=== PATIENT | female | born 1975 | race Caucasian/White ===

== ENCOUNTER 2016-08-06 13:38 | Inpatient (IN) | payer OTHER ==
[~2016-08-06] VITALS: Ht 162.6 cm; Wt 83.8 kg
[2016-08-06] MEDS ORDERED: LACTATED RINGER'S 1,000 ML IV SCH (15:06)
[2016-08-06] MEDS ORDERED: GLUCAGON 1 MG INJ IM PRN (15:30)
[2016-08-06] MEDS ORDERED: DEXTROSE 50% 50 ML SYRINGE IV PRN ×2 (15:30)
[2016-08-06] MEDS ORDERED: ACETAMINOPHEN 325 MG TAB PO PRN (15:30)
[2016-08-06] MEDS ORDERED: GLUCOSE GEL 15 GRAM TUBE BUCCAL PRN (15:30)
[2016-08-06] MEDS ORDERED: GLUCOSE GEL 15 GRAM TUBE PO PRN ×2 (15:30)
[2016-08-06 15:44] VITALS: BMI 37.3
[2016-08-06] MEDS: LACTATED RINGER'S 1,000 ML IV SCH ×2 (15:46→23:15)
[2016-08-06] MEDS: BETAMET NA PHOS/AC(6 MG/ML) 5ML INJ IM SCH (15:46)
[2016-08-06 16:21] LABS: ADD UMIC NO; URINE BILIRUBIN (Dip) NEGATIVE (NEGATIVE); URINE BLOOD (Dip) NEGATIVE (NEGATIVE); URINE COLOR LT. YELLOW (YELLOW); URINE GLUCOSE (Dip) NEGATIVE (NEGATIVE); URINE KETONES (Dip) NEGATIVE (NEGATIVE); URINE LEUKOCYTE ESTERASE (Dip) NEGATIVE (NEGATIVE); URINE NITRITE (Dip) NEGATIVE (NEGATIVE); URINE TOTAL PROTEIN (Dip) NEGATIVE (NEGATIVE); URINE UROBILINOGEN (Dip) 0.2 E.U./dL (0.1-1.0)
[2016-08-06 16:29] LABS: ALBUMIN 3.8 g/dl (3.3-4.9); INR 1.01; PARTIAL THROMBOPLASTIN TIME 29.7 Sec (25.0-35.0); PROTIME 13.3 Sec (12.2-14.2)
[2016-08-06 16:30] LABS: POTASSIUM 3.6 mmol/L (3.5-5.1)
[2016-08-06 16:32] LABS: ALBUMIN/GLOBULIN RATIO 0.92; BILIRUBIN,INDIRECT 0.3 mg/dl (0-1.1); BILIRUBIN,TOTAL 0.3 mg/dl (0.2-1.3); CREATININE 0.52 mg/dl (0.44-1.00); TOTAL PROTEIN 7.9 g/dl (6.1-8.1)
[2016-08-06 16:33] LABS: CALCIUM 9.8 mg/dl (8.4-10.2)
[2016-08-06 16:51] LABS: BASOPHIL # 0.1 10^3/ul (0.0-0.1); BASOPHILS % 0.4 % (0.0-2.0); EOSINOPHILS # 0.1 10^3/ul (0.0-0.5); EOSINOPHILS % 0.9 % (0.0-7.0); HEMATOCRIT 36.9 % (37.0-47.0); HEMOGLOBIN 12.3 g/dl (12.0-16.0); LYMPHOCYTES # 2.2 10^3/ul (0.8-2.9); LYMPHOCYTES % 15.4 % (15.0-51.0); MEAN CORPUSCULAR HEMOGLOBIN 28.5 pg (29.0-33.0); MEAN CORPUSCULAR HGB CONC 33.3 g/dl (32.0-37.0); MEAN CORPUSCULAR VOLUME 85.8 fl (82.0-101.0); MEAN PLATELET VOLUME 9.9 fl (7.4-10.4); MONOCYTE # 0.7 10^3/ul (0.3-0.9); MONOCYTES % 4.9 % (0.0-11.0); NEUTROPHIL # 10.9 10^3/ul (1.6-7.5); NEUTROPHILS % 78.4 % (39.0-77.0); PLATELET COUNT 493 10^3/UL (140-440); RED CELL DISTRIBUTION WIDTH 14.2 % (11.5-14.5); UNCORRECTED WBC 13.9 10^3/ul (4.8-10.8); WHITE BLOOD COUNT 13.9 10^3/ul (4.8-10.8)
[2016-08-06 16:58] LABS: CONDITION 1
[2016-08-06] MEDS: INSULIN ASPART [NOVOLOG] 3 ML PEN SC SCH (17:35)
[2016-08-06] MEDS ORDERED: INSULIN ASPART [NOVOLOG] 3 ML PEN SC SCH (18:05)
[2016-08-06] MEDS: metFORMIN (XR) 500 MG TAB PO SCH (20:41)
[2016-08-06] MEDS: LABETALOL 200 MG TAB PO SCH (20:41)
[2016-08-06] MEDS: NPH, HUMAN INSULIN ISOPHANE 3ML VIAL SC SCH (21:59)
[2016-08-07] MEDS: ACCUCHECK XX SCH ×3 (02:55→20:05)
[2016-08-07] MEDS: NPH, HUMAN INSULIN ISOPHANE 3ML VIAL SC SCH ×2 (08:50→21:33)
[2016-08-07] MEDS: INSULIN ASPART [NOVOLOG] 3 ML PEN SC SCH ×5 (08:54→20:19)
[2016-08-07] MEDS: LABETALOL 200 MG TAB PO SCH ×2 (09:00→21:31)
[2016-08-07] MEDS: MULTIVIT/MIN/FOLATE/IRON/PREN TAB PO SCH (09:07)
[2016-08-07] MEDS: FERROUS SULFATE (EC) 325 MG TAB PO SCH (09:07)
[2016-08-07] MEDS: DOCUSATE SODIUM 100 MG CAP PO SCH (09:08)
[2016-08-07] MEDS: metFORMIN (XR) 500 MG TAB PO SCH ×2 (09:11→21:30)
[2016-08-07] MEDS: LACTATED RINGER'S 1,000 ML IV SCH (10:25)
[2016-08-07] MEDS ORDERED: INSULIN ASPART [NOVOLOG] 3 ML PEN SC SCH ×2 (11:30→13:00)
[2016-08-07] MEDS: BETAMET NA PHOS/AC(6 MG/ML) 5ML INJ IM SCH (15:56)
--- NOTE | 2016-08-07 18:16 | HP ---
Date/Time of Note Date/Time of Note DATE: 08/07/16 TIME: 18:12 OB - History Hx of Present Chief Complaint: Elevated BP Estimated Due Date: Oct 24, 2016 : 4 Para: 1 Spontaneous : 2 Therapeutic : 0 Care: Good Care Obstetrical Complications: Growth Restriction Medical Complications: Other (DM and chronic hypertension) Past Family/Social History * Past Medical, Surgical, Family and Obstetric Histories reviewed from chart. OB Admission Exam Physical Exam HEENT: WNL Heart: Rhythm Normal Lungs: Clear Abdomen: WNL Last 72 hourBlood Glucose Bedside Glucose - 72 Hours Test 08/06/16 20:13 08/07/16 11:05 08/07/16 15:02 Bedside Glucose 222mg/dL (70-220) H 200mg/dL (70-220) 206mg/dL (70-220) Last 72 hours Lab Results CBC & BMP 08/06/16 15:20 Liver Function Test 08/06/16 15:20 Alanine Aminotransferase (ALT/SGPT) 25 Albumin 3.8 Alkaline Phosphatase 128 H Aspartate Amino Transf (AST/SGOT) 26 Direct Bilirubin 0.00 Total Protein 7.9 OB Assessment/Plan Reason for admission: other (R/O superimposed preeclampsia) Plan: Other (Admit, PIH panel, 24 hour urine collection, course of betamethasone, MFM consult) DANUTA BUTTERFIELD MD Aug 07, 2016 18:16
[2016-08-07 19:56] LABS: SCRET 0.52 mg/dl (0.44-1.00)
[2016-08-08] MEDS: ACCUCHECK XX SCH ×5 (02:08→20:33)
[2016-08-08] MEDS: INSULIN ASPART [NOVOLOG] 3 ML PEN SC SCH ×5 (09:21→20:30)
[2016-08-08] MEDS: NPH, HUMAN INSULIN ISOPHANE 3ML VIAL SC SCH ×2 (09:23→20:56)
[2016-08-08] MEDS: MULTIVIT/MIN/FOLATE/IRON/PREN TAB PO SCH (09:25)
[2016-08-08] MEDS: DOCUSATE SODIUM 100 MG CAP PO SCH (09:26)
[2016-08-08] MEDS: metFORMIN (XR) 500 MG TAB PO SCH ×2 (09:26→20:38)
[2016-08-08] MEDS: LABETALOL 200 MG TAB PO SCH ×2 (09:27→20:38)
[2016-08-08] MEDS: FERROUS SULFATE (EC) 325 MG TAB PO SCH (09:27)
--- NOTE | 2016-08-08 12:24 | QN ---
Documentation Comment 28+wks GA with PIH ,On labetalol,No Headache No blurry vision No epigastric pain NST reassuring for GA Ages No CTXs BP 140/90s --->F/u 24 hr urine for Protein ---->Management as perinatalogy --->Neonatalogy consult MAHI PERDOMO M.D. Aug 08, 2016 12:24
[2016-08-09] MEDS: ACCUCHECK XX SCH ×5 (02:18→20:30)
[2016-08-09] MEDS: INSULIN ASPART [NOVOLOG] 3 ML PEN SC SCH ×5 (08:40→20:30)
[2016-08-09] MEDS: NPH, HUMAN INSULIN ISOPHANE 3ML VIAL SC SCH ×2 (08:40→21:34)
[2016-08-09] MEDS: FERROUS SULFATE (EC) 325 MG TAB PO SCH (08:41)
[2016-08-09] MEDS: DOCUSATE SODIUM 100 MG CAP PO SCH (08:41)
[2016-08-09] MEDS: LABETALOL 200 MG TAB PO SCH ×2 (08:41→21:29)
[2016-08-09] MEDS: metFORMIN (XR) 500 MG TAB PO SCH ×2 (08:41→21:27)
[2016-08-09] MEDS: MULTIVIT/MIN/FOLATE/IRON/PREN TAB PO SCH (08:41)
[2016-08-09] MEDS ORDERED: LACTATED RINGER'S 1,000 ML IV SCH (09:30)
[2016-08-09 10:33] LABS: INR 0.96; PROTIME 12.8 Sec (12.2-14.2)
[2016-08-09 10:34] LABS: PARTIAL THROMBOPLASTIN TIME 26.9 Sec (25.0-35.0)
[2016-08-09 10:35] LABS: ALBUMIN 3.5 g/dl (3.3-4.9); POTASSIUM 3.5 mmol/L (3.5-5.1)
[2016-08-09 10:37] LABS: BILIRUBIN,INDIRECT 0.3 mg/dl (0-1.1); BILIRUBIN,TOTAL 0.3 mg/dl (0.2-1.3); CREATININE 0.57 mg/dl (0.44-1.00)
[2016-08-09 10:38] LABS: ALBUMIN/GLOBULIN RATIO 0.97; TOTAL PROTEIN 7.1 g/dl (6.1-8.1); URIC ACID 6.3 mg/dl (3.1-7.9)
[2016-08-09 10:39] LABS: CALCIUM 8.7 mg/dl (8.4-10.2)
--- NOTE | 2016-08-09 10:43 | RADRPT ---
PROCEDURE: US OB biophysical profile. CLINICAL INDICATION: decreased movements TECHNIQUE: Multiple sonographic images of the pelvis were obtained. The images were reviewed on a PACS workstation. COMPARISON: No prior studies are available for comparison. FINDINGS: There is a single viable intrauterine gestation. Cardiac activity is present with 166 beats per min [place]. There is a vertex presentation. The placenta is anterior. There is no evidence of placental abruption. There is a slightly increased amount of amniotic fluid with an SILKE = 21.7 cm. Biophysical profile: movement 2/2 tone 2/2. breathing 2/2 SILKE 2/2 Total 02/03 RPTAT: AA . IMPRESSION: Normal biophysical profile. Mild polyhydramnios. . .Zachariah Keyes MD, Date Time Electronically viewed and signed by .Zachariah Keyes MD, MD on 08/09/2016 10:42 .S/
--- NOTE | 2016-08-09 10:44 | RADRPT ---
PROCEDURE: US OB. CLINICAL INDICATION: iugr, nonreassuring tracing, gestational diabetes TECHNIQUE: Multiple sonographic images of the pelvis were obtained. The images were reviewed on a PACS workstation. COMPARISON: No prior studies are available for comparison. FINDINGS: There is a single viable intrauterine gestation. Cardiac activity is present with 163 beats per min [place]. There is a cephalic presentation. Measurements were made in order to determine age. The results are as follows: BPD =6.96 cm; 32-vdee-8-day HC =25.2 cm; 27 weeks 2 days AC =23.24 cm; 27 weeks 4 days FL =4.74 cm; 25 weeks 6 days. HC/AC: 1.08 Estimated gestational age of approximately 27 weeks 1 day. The estimated date of delivery is 11/07/2016. The EFW = 1010 g plus or minus 151.4 g . EFW %: Less than 3% The placenta is anterior and grade 2. There is no evidence for an abruption or placenta previa. There are no adnexal masses.. IMPRESSION: 1. Single viable intrauterine gestation of approximately 27 weeks 1 day. The estimated date of deli very is 11/07/2016 . 2. The EFW = 1010 g plus or minus 151.4 g which corresponds to a EFW % of less than 3%. Findings c an be seen symmetric IUGR Text .Mirtha Davila MD, MD Date Time Electronically viewed and signed by .Mirtha Davila MD, MD on 08/09/2016 10:44 .M/
[2016-08-09 10:57] LABS: BASOPHIL # 0.1 10^3/ul (0.0-0.1); BASOPHILS % 0.4 % (0.0-2.0); EOSINOPHILS # 0.1 10^3/ul (0.0-0.5); EOSINOPHILS % 0.7 % (0.0-7.0); HEMATOCRIT 35.2 % (37.0-47.0); HEMOGLOBIN 11.7 g/dl (12.0-16.0); LYMPHOCYTES # 3.2 10^3/ul (0.8-2.9); LYMPHOCYTES % 18.7 % (15.0-51.0); MEAN CORPUSCULAR HEMOGLOBIN 28.8 pg (29.0-33.0); MEAN CORPUSCULAR HGB CONC 33.2 g/dl (32.0-37.0); MEAN CORPUSCULAR VOLUME 86.9 fl (82.0-101.0); MEAN PLATELET VOLUME 9.6 fl (7.4-10.4); NEUTROPHIL # 12.8 10^3/ul (1.6-7.5); NEUTROPHILS % 74.2 % (39.0-77.0); PLATELET COUNT 439 10^3/UL (140-440); RED BLOOD COUNT 4.06 10^6/ul (4.20-5.40); RED CELL DISTRIBUTION WIDTH 14.3 % (11.5-14.5); UNCORRECTED WBC 17.2 10^3/ul (4.8-10.8); WHITE BLOOD COUNT 17.2 10^3/ul (4.8-10.8)
[2016-08-09 11:05] LABS: CONDITION 1
--- NOTE | 2016-08-09 16:29 | QN ---
Documentation Comment Patient has no complaint. Afebrile VSS Strip Decreased variability. BPP 02/03 Continue with present care. DANUTA BUTTERFIELD MD Aug 09, 2016 16:29
[2016-08-10] MEDS: ACCUCHECK XX SCH ×5 (02:00→20:57)
[2016-08-10] MEDS: NPH, HUMAN INSULIN ISOPHANE 3ML VIAL SC SCH ×2 (08:46→21:00)
[2016-08-10] MEDS: INSULIN ASPART [NOVOLOG] 3 ML PEN SC SCH ×4 (08:48→20:30)
[2016-08-10] MEDS: FERROUS SULFATE (EC) 325 MG TAB PO SCH (08:50)
[2016-08-10] MEDS: MULTIVIT/MIN/FOLATE/IRON/PREN TAB PO SCH (08:50)
[2016-08-10] MEDS: DOCUSATE SODIUM 100 MG CAP PO SCH (08:50)
[2016-08-10] MEDS: LABETALOL 200 MG TAB PO SCH ×2 (08:51→21:12)
[2016-08-10] MEDS: metFORMIN (XR) 500 MG TAB PO SCH ×2 (08:52→21:28)
--- NOTE | 2016-08-10 12:47 | RADRPT ---
PROCEDURE: OB ultrasound CLINICAL INDICATION: IUGR with induced hypertension and tachycardia TECHNIQUE: Multiple transverse and longitudinal OB images of the pelvis were obtained. The images were reviewed on a high-resolution PACS workstation. COMPARISON: 08/09/2016 FINDINGS: A single live intrauterine is seen. The presentation is vertex. The placenta is grade 1/2 and is anterior in location. No evidence of placenta abruption or previa is seen. The heart r ate is 171 beats per minute. The amniotic fluid index is 24.8 cm. movement 2 tone 2 breathing 2 Amniotic fluid 2 IMPRESSION: Biophysical profile of 02/03 with the amniotic fluid index of 24.8 cm which is the upper limits of nor mal and has increased compared to the prior examination. Continued follow-up is suggested. RPTAT: HPNM Physician Sussy Date Time Electronically viewed and signed by Physician Sussy on 08/10/2016 12:46 /
[2016-08-10] MEDS ORDERED: LABETALOL 200 MG TAB PO SCH (14:00)
[2016-08-10] MEDS: NIFEdipine (XL) 30 MG TAB PO SCH (14:37)
--- NOTE | 2016-08-10 16:53 | QN ---
Documentation Comment 28+wks GA with PIH ,On labetalol,No Headache No blurry vision No epigastric pain NST reassuring for GA [place] No CTXs BP 145/90s --->Close Observation ---->Management as perinatalogy MAHI PERDOMO M.D. Aug 10, 2016 16:53
[2016-08-11] MEDS: ACCUCHECK XX SCH ×6 (02:00→21:16)
[2016-08-11 06:00] LABS: BASOPHIL # 0.2 10^3/ul (0.0-0.1); BASOPHILS % 1.1 % (0.0-2.0); EOSINOPHILS # 0.2 10^3/ul (0.0-0.5); LYMPHOCYTES % 15.8 % (15.0-51.0); MEAN CORPUSCULAR HEMOGLOBIN 29.2 pg (29.0-33.0); MEAN CORPUSCULAR HGB CONC 34.2 g/dl (32.0-37.0); MEAN CORPUSCULAR VOLUME 85.3 fl (82.0-101.0); MEAN PLATELET VOLUME 9.5 fl (7.4-10.4); MONOCYTES % 5.2 % (0.0-11.0); NEUTROPHIL # 14.5 10^3/ul (1.6-7.5); NEUTROPHILS % 76.9 % (39.0-77.0); PLATELET COUNT 473 10^3/UL (140-440); RED BLOOD COUNT 4.81 10^6/ul (4.20-5.40); RED CELL DISTRIBUTION WIDTH 14.2 % (11.5-14.5); UNCORRECTED WBC 18.9 10^3/ul (4.8-10.8); WHITE BLOOD COUNT 18.9 10^3/ul (4.8-10.8)
[2016-08-11 06:14] LABS: CONDITION 1
[2016-08-11 06:32] LABS: ALBUMIN 3.4 g/dl (3.3-4.9); POTASSIUM 3.6 mmol/L (3.5-5.1)
[2016-08-11 06:34] LABS: CREATININE 0.66 mg/dl (0.44-1.00)
[2016-08-11 06:35] LABS: ALBUMIN/GLOBULIN RATIO 0.91; BILIRUBIN,INDIRECT 0.6 mg/dl (0-1.1); BILIRUBIN,TOTAL 0.6 mg/dl (0.2-1.3); TOTAL PROTEIN 7.1 g/dl (6.1-8.1); URIC ACID 6.9 mg/dl (3.1-7.9)
--- NOTE | 2016-08-11 07:06 | CONS ---
DATE OF ADMISSION: 08/06/2016 DATE OF CONSULTATION: REFERRING PHYSICIAN: Dr. Amin. I was asked to talk with this mother who is 29.1 weeks by gestational age with an IUGR fetus and with chronic hypertension, type 2 diabetes for 10 years on medications and advanced maternal age. Mother is a 41-year-old, 4, para 1, AB2 with 1 living child who is an 8-month-old. Mother states that the child was born at term and required phototherapy. She had 2 spontaneous abortions in 2007 and 2013. Mother's chart was reviewed, and mother's labs were essentially normal with a blood type of O positive, RPR nonreactive, HBsAg negative, HIV negative and no history of infections. GBS status is unknown. She has had chronic hypertension for 10 years and has been on Aldomet. She also had type 2 diabetes and has been on metformin. She had an ultrasound done on 08/06/2016 and was noted to have IUGR with an estimated weight over 800 grams. She was subsequently admitted to rule out PIH. 24-hour urine tests are pending. I reviewed the recent ultrasound which showed the estimated weight to be 1010 grams plus or minus 151 grams. Ultrasound gestational age is 27.1 weeks and the estimated gestational age is 29.1 weeks, with an EDC 10/24/2016. I talked with mother about the risk for respiratory distress and treatment including oxygen administration, CPAP, nasal IMV and intubation and surfactant administration and ventilatory therapy depending on the severity of the premature lung problem, as well as the size of the infant and ability to sustain breathing. I also discussed about the risk of apnea as well as treatment with caffeine and nasal cannula, CPAP or nasal IMV. We also discussed about the risk of infection due to extreme prematurity and infant to be on antibiotics and subsequently to be monitored continuously during hospitalization.I also discussed about the associated risk of mortality as well as morbidity. Discussed about the risk of hyperbilirubinemia, electrolyte imbalance and possibility of administration of blood products as well as blood transfusions. We discussed about feeding by OG or NG tube when the infant is clinically stable and also the benefits of breast milk. I encouraged mother to pump breast milk, and mother is ready to pump as soon as the infant is delivered. I also discussed about gastroesophageal reflux, necrotizing enterocolitis, possibility of a PDA and treatment. I discussed about the risk of intraventricular hemorrhage including a bleed and increased risk of cerebral palsy as well as neurodevelopmental delay based on grade of intraventricular hemorrhage as well as prematurity. I discussed about the survival of greater than 80% if the infant is 29 weeks by dates and 27 weeks by ultrasound. Discussed the mortality as well as morbidity and prolonged hospitalization of greater than 2 months. All mother's questions were answered. I also discussed about invasive lines including umbilical arterial catheterization, umbilical venous catheterization, risks as well as benefits. We also discussed about PICC line placement for IV nutrition. Mother received betamethasone on 08/06/2016 and 08/07/2016 and remains on insulin, labetalol and metformin at the present time. There were no additional questions. The discussion was concluded. Dictated By: AGUEDA CAMARGO/YOU Conf#: [id number] DID#: [id number] MTDD
[2016-08-11] MEDS: NPH, HUMAN INSULIN ISOPHANE 3ML VIAL SC SCH ×2 (07:38→21:21)
[2016-08-11] MEDS: DOCUSATE SODIUM 100 MG CAP PO SCH (08:57)
[2016-08-11] MEDS: LABETALOL 200 MG TAB PO SCH ×2 (08:57→21:18)
[2016-08-11] MEDS: MULTIVIT/MIN/FOLATE/IRON/PREN TAB PO SCH (08:57)
[2016-08-11] MEDS: FERROUS SULFATE (EC) 325 MG TAB PO SCH (08:57)
[2016-08-11] MEDS: INSULIN ASPART [NOVOLOG] 3 ML PEN SC SCH ×5 (09:04→20:30)
[2016-08-11] MEDS: metFORMIN (XR) 500 MG TAB PO SCH ×2 (09:09→21:17)
[2016-08-11] MEDS: NIFEdipine (XL) 30 MG TAB PO SCH (09:09)
--- NOTE | 2016-08-11 19:37 | QN ---
Documentation Comment No complaint Afebrile VSS strip Appropriate for GA BP improved with Procardia Continue with present care. DANUTA BUTTERFIELD MD Aug 11, 2016 19:37
[2016-08-11] MEDS: DIPHENHYDRAMINE 50 MG CAP PO SCH ×2 (21:47)
[2016-08-12] MEDS: ACCUCHECK XX SCH ×5 (02:00→20:19)
[2016-08-12] MEDS: NPH, HUMAN INSULIN ISOPHANE 3ML VIAL SC SCH ×2 (08:37→21:08)
[2016-08-12] MEDS: INSULIN ASPART [NOVOLOG] 3 ML PEN SC SCH ×5 (08:38→20:30)
[2016-08-12] MEDS: MULTIVIT/MIN/FOLATE/IRON/PREN TAB PO SCH (08:41)
[2016-08-12] MEDS: LABETALOL 200 MG TAB PO SCH ×2 (08:41→21:10)
[2016-08-12] MEDS: DOCUSATE SODIUM 100 MG CAP PO SCH (08:42)
[2016-08-12] MEDS: FERROUS SULFATE (EC) 325 MG TAB PO SCH (08:43)
[2016-08-12] MEDS: metFORMIN (XR) 500 MG TAB PO SCH ×2 (08:43→21:09)
[2016-08-12] MEDS: NIFEdipine (XL) 30 MG TAB PO SCH (08:44)
--- NOTE | 2016-08-12 18:56 | QN ---
Documentation Comment No complaint. Afebrile VSS Strip Appropriate for GA Continue with present care. DANUTA BUTTERFIELD MD Aug 12, 2016 18:56
[2016-08-12] MEDS: DIPHENHYDRAMINE 50 MG CAP PO SCH (21:10)
[2016-08-13] MEDS: ACCUCHECK XX SCH ×5 (02:00→19:30)
[2016-08-13] MEDS: INSULIN ASPART [NOVOLOG] 3 ML PEN SC SCH ×5 (08:33→20:30)
[2016-08-13] MEDS: NPH, HUMAN INSULIN ISOPHANE 3ML VIAL SC SCH ×2 (08:38→21:25)
[2016-08-13] MEDS: metFORMIN (XR) 500 MG TAB PO SCH ×2 (08:50→21:23)
[2016-08-13] MEDS: FERROUS SULFATE (EC) 325 MG TAB PO SCH (08:50)
[2016-08-13] MEDS: DOCUSATE SODIUM 100 MG CAP PO SCH (08:50)
[2016-08-13] MEDS: LABETALOL 200 MG TAB PO SCH ×2 (08:51→21:22)
[2016-08-13] MEDS: MULTIVIT/MIN/FOLATE/IRON/PREN TAB PO SCH (08:51)
[2016-08-13] MEDS: NIFEdipine (XL) 30 MG TAB PO SCH (08:51)
--- NOTE | 2016-08-13 15:01 | RADRPT ---
PROCEDURE: US biophysical profile. CLINICAL INDICATION: Decreased motion. TECHNIQUE: Multiple sonographic images of the uterus were obtained. The images were revi ewed on a PACS workstation. COMPARISON: 08/10/2016 FINDINGS: There is a single live intrauterine gestation. heart rate is 168 beats per minute. The position is transverse with head to maternal right. The placenta is anterior grade II with no abruption or previa. The SILKE is 16.2 cm. (Normal = 5-20 cm.) Breathing Movement: 2 Gross Body Movement: 2 Tone: 2 Qualitative Amniotic Fluid Volume: 2 TOTAL: 8 IMPRESSION: 1. The biophysical score is 8/8. RPTAT: QQ .Chris Garcia MD, MD Date Time Electronically viewed and signed by .Chris Garcia MD, on 08/13/2016 15:00 .R/
[2016-08-13] MEDS: DIPHENHYDRAMINE 50 MG CAP PO SCH (21:21)
--- NOTE | 2016-08-14 01:10 | QN ---
Documentation Comment No complaint Afebrile VSS Strip Appropriate for GA Continue with present care. DANUTA BUTTERFIELD MD Aug 14, 2016 01:10
[2016-08-14] MEDS: ACCUCHECK XX SCH ×6 (02:00→20:05)
[2016-08-14] MEDS: INSULIN ASPART [NOVOLOG] 3 ML PEN SC SCH ×5 (08:46→20:30)
[2016-08-14] MEDS: NPH, HUMAN INSULIN ISOPHANE 3ML VIAL SC SCH ×2 (08:48→21:12)
[2016-08-14] MEDS: DOCUSATE SODIUM 100 MG CAP PO SCH (08:50)
[2016-08-14] MEDS: FERROUS SULFATE (EC) 325 MG TAB PO SCH (08:50)
[2016-08-14] MEDS: metFORMIN (XR) 500 MG TAB PO SCH ×2 (08:51→21:13)
[2016-08-14] MEDS: NIFEdipine (XL) 30 MG TAB PO SCH (08:52)
[2016-08-14] MEDS: LABETALOL 200 MG TAB PO SCH ×2 (08:53→21:09)
[2016-08-14] MEDS: MULTIVIT/MIN/FOLATE/IRON/PREN TAB PO SCH (08:53)
--- NOTE | 2016-08-14 12:48 | RADRPT ---
PROCEDURE: Limited OB ultrasound CLINICAL INDICATION: Nonreactive strip TECHNIQUE: Sonographic evaluation to assess the cervical length was performed. Transabdominal uriah ging of the gravid uterus was performed. COMPARISON: No prior exam is available for comparison. FINDINGS: There is a single live intrauterine with cardiac activity, with a heart rate o f 150 bpm. position is cephalic. The placenta is anterior. The peak systolic velocity at th e level of the cord insertion is 29.4 cm/sec. The end-diastolic velocity is 8.0 cm/sec. The S/D ra doug is 3.7. IMPRESSION: 1. Single live intrauterine . 2. Peak systolic velocity of 29.4 cm/s, end-diastolic velocity of 8.0 cm/s, and S/D ratio of 3.7. RPTAT: HH .Verna Cha MD, MD Date Time Electronically viewed and signed by .Verna Cha MD, on 08/14/2016 12:48 .G/
[2016-08-14] MEDS: DIPHENHYDRAMINE 50 MG CAP PO SCH (22:13)
[2016-08-15] MEDS: ACCUCHECK XX SCH ×5 (02:00→20:06)
[2016-08-15] MEDS: INSULIN ASPART [NOVOLOG] 3 ML PEN SC SCH ×5 (09:08→20:40)
[2016-08-15] MEDS: NPH, HUMAN INSULIN ISOPHANE 3ML VIAL SC SCH ×2 (09:09→22:06)
[2016-08-15] MEDS: DOCUSATE SODIUM 100 MG CAP PO SCH (09:17)
[2016-08-15] MEDS: FERROUS SULFATE (EC) 325 MG TAB PO SCH (09:17)
[2016-08-15] MEDS: NIFEdipine (XL) 30 MG TAB PO SCH (09:18)
[2016-08-15] MEDS: MULTIVIT/MIN/FOLATE/IRON/PREN TAB PO SCH (09:18)
[2016-08-15] MEDS: metFORMIN (XR) 500 MG TAB PO SCH ×2 (09:18→21:16)
[2016-08-15] MEDS: LABETALOL 200 MG TAB PO SCH ×2 (09:20→21:15)
--- NOTE | 2016-08-15 18:03 | RADRPT ---
PROCEDURE: US OB biophysical profile. CLINICAL INDICATION: evaluation TECHNIQUE: Multiple sonographic images of the pelvis were obtained. The images were reviewed on a PACS workstation. COMPARISON: Obstetrical ultrasound from 08/13/2016 FINDINGS: There is a single viable intrauterine gestation. Cardiac activity is present with 161 beats per min [place]. There is a vertex presentation. The placenta is anterior. There is no evidence of placental abruption. There is a normal amount of amniotic fluid with an SILEK = 11.7 cm. Biophysical profile: movement 2/2 tone 2/2. breathing 2/2 SILKE 2/2 Total 02/03 RPTAT: AA . IMPRESSION: Normal biophysical profile. Normal SILKE. Physician Emory Date Time Electronically viewed and signed by Physician Emory on 08/15/2016 18:03 /
--- NOTE | 2016-08-15 19:53 | QN ---
Documentation Comment No complaint. Afebrile VSS Strip Appropriate for GA BPP 02/03 Continue with present care. DANUTA BUTTERFIELD MD Aug 15, 2016 19:53
[2016-08-15] MEDS: DIPHENHYDRAMINE 50 MG CAP PO SCH (22:07)
[2016-08-16] MEDS: ACCUCHECK XX SCH ×5 (00:26→20:05)
[2016-08-16 06:41] LABS: BASOPHIL # 0.1 10^3/ul (0.0-0.1); BASOPHILS % 0.5 % (0.0-2.0); EOSINOPHILS # 0.2 10^3/ul (0.0-0.5); EOSINOPHILS % 1.4 % (0.0-7.0); HEMATOCRIT 39.2 % (37.0-47.0); HEMOGLOBIN 13.1 g/dl (12.0-16.0); LYMPHOCYTES # 2.8 10^3/ul (0.8-2.9); LYMPHOCYTES % 16.9 % (15.0-51.0); MEAN CORPUSCULAR HEMOGLOBIN 28.9 pg (29.0-33.0); MEAN CORPUSCULAR HGB CONC 33.4 g/dl (32.0-37.0); MEAN CORPUSCULAR VOLUME 86.6 fl (82.0-101.0); MEAN PLATELET VOLUME 9.6 fl (7.4-10.4); MONOCYTE # 0.9 10^3/ul (0.3-0.9); MONOCYTES % 5.4 % (0.0-11.0); NEUTROPHIL # 12.3 10^3/ul (1.6-7.5); NEUTROPHILS % 75.8 % (39.0-77.0); PLATELET COUNT 422 10^3/UL (140-440); RED BLOOD COUNT 4.52 10^6/ul (4.20-5.40); RED CELL DISTRIBUTION WIDTH 14.5 % (11.5-14.5); UNCORRECTED WBC 16.3 10^3/ul (4.8-10.8); WHITE BLOOD COUNT 16.3 10^3/ul (4.8-10.8)
[2016-08-16 06:47] LABS: CONDITION 1; LH ANALYZER COMMENTS 1
[2016-08-16 06:54] LABS: ALBUMIN 3.4 g/dl (3.3-4.9)
[2016-08-16 06:55] LABS: POTASSIUM 3.5 mmol/L (3.5-5.1)
[2016-08-16 06:57] LABS: ALBUMIN/GLOBULIN RATIO 0.94; BILIRUBIN,INDIRECT 0.3 mg/dl (0-1.1); BILIRUBIN,TOTAL 0.3 mg/dl (0.2-1.3); CREATININE 0.54 mg/dl (0.44-1.00)
[2016-08-16 06:58] LABS: CALCIUM 8.8 mg/dl (8.4-10.2); URIC ACID 6.6 mg/dl (3.1-7.9)
[2016-08-16] MEDS: MULTIVIT/MIN/FOLATE/IRON/PREN TAB PO SCH (08:48)
[2016-08-16] MEDS: FERROUS SULFATE (EC) 325 MG TAB PO SCH (08:48)
[2016-08-16] MEDS: DOCUSATE SODIUM 100 MG CAP PO SCH (08:49)
[2016-08-16] MEDS: NIFEdipine (XL) 30 MG TAB PO SCH (08:49)
[2016-08-16] MEDS: LABETALOL 200 MG TAB PO SCH ×2 (08:49→21:11)
[2016-08-16] MEDS: INSULIN ASPART [NOVOLOG] 3 ML PEN SC SCH ×5 (08:50→20:05)
[2016-08-16] MEDS: NPH, HUMAN INSULIN ISOPHANE 3ML VIAL SC SCH ×2 (08:53→21:13)
[2016-08-16] MEDS: metFORMIN (XR) 500 MG TAB PO SCH ×2 (09:48→21:10)
--- NOTE | 2016-08-16 15:58 | QN ---
Documentation Comment No complaint Afebrile VSS Strip Appropriate for GA AST, ALT and plt WNL Continue with present care. DANUTA BUTTERFIELD MD Aug 16, 2016 15:58
[2016-08-16] MEDS: DIPHENHYDRAMINE 50 MG CAP PO SCH (21:10)
[2016-08-17] MEDS: ACCUCHECK XX SCH ×5 (02:00→20:05)
[2016-08-17] MEDS: NPH, HUMAN INSULIN ISOPHANE 3ML VIAL SC SCH ×2 (08:50→21:53)
[2016-08-17] MEDS: INSULIN ASPART [NOVOLOG] 3 ML PEN SC SCH ×5 (08:52→20:30)
[2016-08-17] MEDS: FERROUS SULFATE (EC) 325 MG TAB PO SCH (08:54)
[2016-08-17] MEDS: DOCUSATE SODIUM 100 MG CAP PO SCH (08:54)
[2016-08-17] MEDS: LABETALOL 200 MG TAB PO SCH ×2 (08:55→21:13)
[2016-08-17] MEDS: MULTIVIT/MIN/FOLATE/IRON/PREN TAB PO SCH (08:57)
[2016-08-17] MEDS: NIFEdipine (XL) 30 MG TAB PO SCH (09:05)
[2016-08-17] MEDS: metFORMIN (XR) 500 MG TAB PO SCH ×2 (09:06→21:13)
--- NOTE | 2016-08-17 15:29 | QN ---
Documentation Comment No complaint Afebrile VSS Strip Appropriate for GA Continue with present care. DANUTA BUTTERFIELD MD Aug 17, 2016 15:29
[2016-08-17] MEDS: DIPHENHYDRAMINE 50 MG CAP PO SCH (21:13)
[2016-08-18] MEDS: ACCUCHECK XX SCH ×5 (02:00→20:05)
[2016-08-18] MEDS: NPH, HUMAN INSULIN ISOPHANE 3ML VIAL SC SCH ×2 (07:30→21:46)
[2016-08-18] MEDS: MULTIVIT/MIN/FOLATE/IRON/PREN TAB PO SCH (09:00)
[2016-08-18] MEDS: FERROUS SULFATE (EC) 325 MG TAB PO SCH (09:00)
[2016-08-18] MEDS: DOCUSATE SODIUM 100 MG CAP PO SCH (09:00)
[2016-08-18] MEDS: NIFEdipine (XL) 30 MG TAB PO SCH (09:01)
[2016-08-18] MEDS: LABETALOL 200 MG TAB PO SCH ×2 (09:01→21:43)
[2016-08-18] MEDS: INSULIN ASPART [NOVOLOG] 3 ML PEN SC SCH ×5 (09:05→20:30)
[2016-08-18] MEDS: metFORMIN (XR) 500 MG TAB PO SCH ×2 (09:11→21:42)
--- NOTE | 2016-08-18 19:38 | QN ---
Documentation Comment No complaint Afebrile VSS Strip Appropriate for GA Continue with present care. DANUTA BUTTERFIELD MD Aug 18, 2016 19:38
[2016-08-18] MEDS: DIPHENHYDRAMINE 50 MG CAP PO SCH (21:42)
[2016-08-19] MEDS: ACCUCHECK XX SCH ×5 (02:00→19:35)
[2016-08-19] MEDS: INSULIN ASPART [NOVOLOG] 3 ML PEN SC SCH ×5 (09:19→20:30)
[2016-08-19] MEDS: NPH, HUMAN INSULIN ISOPHANE 3ML VIAL SC SCH ×2 (09:21→21:18)
[2016-08-19] MEDS: DOCUSATE SODIUM 100 MG CAP PO SCH (09:23)
[2016-08-19] MEDS: FERROUS SULFATE (EC) 325 MG TAB PO SCH (09:23)
[2016-08-19] MEDS: metFORMIN (XR) 500 MG TAB PO SCH ×2 (09:24→21:15)
[2016-08-19] MEDS: MULTIVIT/MIN/FOLATE/IRON/PREN TAB PO SCH (09:24)
[2016-08-19] MEDS: NIFEdipine (XL) 30 MG TAB PO SCH (09:26)
[2016-08-19] MEDS: LABETALOL 200 MG TAB PO SCH ×2 (09:26→21:16)
--- NOTE | 2016-08-19 14:05 | QN ---
Documentation Comment No complaint Afebrile VSS Strip Appropriate for GA Continue with present care. DANUTA BUTTERFIELD MD Aug 19, 2016 14:05
--- NOTE | 2016-08-19 15:47 | RADRPT ---
PROCEDURE: US OB biophysical profile. CLINICAL INDICATION: decreased movements, IUGR TECHNIQUE: Multiple sonographic images of the pelvis were obtained. The images were reviewed on a PACS workstation. COMPARISON: 08/15/2016 FINDINGS: There is a single viable intrauterine gestation. Cardiac activity is present with 171 beats per min [place]. There is a breech presentation. The placenta is anterior. There is no evidence of placental abruption. There is a slightly increased amount of amniotic fluid with an SILKE = 21.4 cm. Biophysical profile: movement 2/2 tone 2/2. breathing 2/2 SILKE 2/2 Total 02/03 RPTAT: AA . IMPRESSION: Normal biophysical profile. Slightly increased SILKE. . .Zachariah Keyes MD, Date Time Electronically viewed and signed by .Zachariah Keyes MD, on 08/19/2016 15:47 .S/
[2016-08-19 17:53] LABS: BASOPHIL # 0.1 10^3/ul (0.0-0.1); BASOPHILS % 0.5 % (0.0-2.0); EOSINOPHILS # 0.2 10^3/ul (0.0-0.5); EOSINOPHILS % 0.9 % (0.0-7.0); HEMATOCRIT 39.3 % (37.0-47.0); HEMOGLOBIN 13.3 g/dl (12.0-16.0); LYMPHOCYTES # 2.2 10^3/ul (0.8-2.9); LYMPHOCYTES % 12.7 % (15.0-51.0); MEAN CORPUSCULAR HGB CONC 33.7 g/dl (32.0-37.0); MEAN PLATELET VOLUME 10.1 fl (7.4-10.4); MONOCYTE # 0.8 10^3/ul (0.3-0.9); MONOCYTES % 4.8 % (0.0-11.0); NEUTROPHIL # 14.3 10^3/ul (1.6-7.5); NEUTROPHILS % 81.1 % (39.0-77.0); PLATELET COUNT 419 10^3/UL (140-440); RED BLOOD COUNT 4.57 10^6/ul (4.20-5.40); UNCORRECTED WBC 17.7 10^3/ul (4.8-10.8); WHITE BLOOD COUNT 17.7 10^3/ul (4.8-10.8)
[2016-08-19 18:02] LABS: CONDITION 1; LH ANALYZER COMMENTS 1
[2016-08-19 18:08] LABS: ALBUMIN 3.5 g/dl (3.3-4.9); POTASSIUM 3.7 mmol/L (3.5-5.1)
[2016-08-19 18:10] LABS: CREATININE 0.58 mg/dl (0.44-1.00)
[2016-08-19 18:11] LABS: ALBUMIN/GLOBULIN RATIO 1.02; BILIRUBIN,INDIRECT 0.3 mg/dl (0-1.1); BILIRUBIN,TOTAL 0.3 mg/dl (0.2-1.3); CALCIUM 9.3 mg/dl (8.4-10.2); TOTAL PROTEIN 6.9 g/dl (6.1-8.1)
[2016-08-19] MEDS: DIPHENHYDRAMINE 50 MG CAP PO SCH (21:13)
[2016-08-20] MEDS: ACCUCHECK XX SCH ×5 (02:00→20:33)
[2016-08-20] MEDS: INSULIN ASPART [NOVOLOG] 3 ML PEN SC SCH ×5 (08:36→20:30)
[2016-08-20] MEDS: NPH, HUMAN INSULIN ISOPHANE 3ML VIAL SC SCH ×2 (08:38→21:22)
[2016-08-20] MEDS: DOCUSATE SODIUM 100 MG CAP PO SCH (08:51)
[2016-08-20] MEDS: metFORMIN (XR) 500 MG TAB PO SCH ×2 (08:52→21:23)
[2016-08-20] MEDS: FERROUS SULFATE (EC) 325 MG TAB PO SCH (08:52)
[2016-08-20] MEDS: LABETALOL 200 MG TAB PO SCH ×2 (08:53→21:24)
[2016-08-20] MEDS: NIFEdipine (XL) 30 MG TAB PO SCH (08:53)
[2016-08-20] MEDS: MULTIVIT/MIN/FOLATE/IRON/PREN TAB PO SCH (08:53)
--- NOTE | 2016-08-20 20:10 | QN ---
Documentation Comment No complaint Afebrile VSS Strip Appropriate for GA Continue with present care. DANUTA BUTTERFIELD MD Aug 20, 2016 20:10
[2016-08-20] MEDS: DIPHENHYDRAMINE 50 MG CAP PO SCH (21:23)
[2016-08-21] MEDS: ACCUCHECK XX SCH ×5 (02:00→20:26)
[2016-08-21] MEDS: NPH, HUMAN INSULIN ISOPHANE 3ML VIAL SC SCH ×2 (09:08→21:43)
[2016-08-21] MEDS: INSULIN ASPART [NOVOLOG] 3 ML PEN SC SCH ×5 (09:09→20:27)
[2016-08-21] MEDS: DOCUSATE SODIUM 100 MG CAP PO SCH (09:18)
[2016-08-21] MEDS: NIFEdipine (XL) 30 MG TAB PO SCH (09:19)
[2016-08-21] MEDS: FERROUS SULFATE (EC) 325 MG TAB PO SCH (09:20)
[2016-08-21] MEDS: LABETALOL 200 MG TAB PO SCH ×2 (09:20→21:44)
[2016-08-21] MEDS: MULTIVIT/MIN/FOLATE/IRON/PREN TAB PO SCH (09:21)
[2016-08-21] MEDS: metFORMIN (XR) 500 MG TAB PO SCH ×2 (09:26→21:44)
[2016-08-21] MEDS: DIPHENHYDRAMINE 50 MG CAP PO SCH (21:44)
--- NOTE | 2016-08-21 23:17 | PN ---
Date/Time of Note Date/Time of Note DATE: 08/21/16 TIME: 23:15 OB Subjective Subjective Subjective Patient is on 200mg po BID to control htn; BP's 150's/90's; last BP 123/80 GDM, on insulin sliding, 10 U NPH qhs FHT continues to remain Cat II c/w plan as per BRADLEY Mock MD Aug 21, 2016 23:17
[2016-08-22] MEDS: ACCUCHECK XX SCH ×5 (02:00→19:41)
[2016-08-22] MEDS: LABETALOL 200 MG TAB PO SCH ×2 (08:52→21:23)
[2016-08-22] MEDS: NIFEdipine (XL) 30 MG TAB PO SCH (08:52)
[2016-08-22] MEDS: DOCUSATE SODIUM 100 MG CAP PO SCH (08:52)
[2016-08-22] MEDS: MULTIVIT/MIN/FOLATE/IRON/PREN TAB PO SCH (08:52)
[2016-08-22] MEDS: FERROUS SULFATE (EC) 325 MG TAB PO SCH (08:52)
[2016-08-22] MEDS: metFORMIN (XR) 500 MG TAB PO SCH ×2 (08:53→21:22)
[2016-08-22] MEDS: INSULIN ASPART [NOVOLOG] 3 ML PEN SC SCH ×5 (08:57→20:30)
[2016-08-22] MEDS: NPH, HUMAN INSULIN ISOPHANE 3ML VIAL SC SCH ×2 (08:58→21:35)
--- NOTE | 2016-08-22 18:05 | QN ---
Documentation Comment No complaint Afebrile VSS Strip Appropriate for GA Continue with present care DANUTA BUTTERFIELD MD Aug 22, 2016 18:03
--- NOTE | 2016-08-22 18:26 | RADRPT ---
PROCEDURE: US OB. CLINICAL INDICATION: High blood pressure TECHNIQUE: Multiple sonographic images of the pelvis were obtained. The images were reviewed on a PACS workstation. COMPARISON: 08/19/2069 FINDINGS: There is a single live intrauterine . cardiac activity is identified at a rate of 15 6 beats per minute. presentation is transverse to the maternal left. Placenta is anterior grade II. Biophysical profile score is as follows: Breathing 2 Movements 2 Tone 2 Fluid volume 2 Amniotic fluid index = 14.0 cm Total biophysical profile score = 8/8 IMPRESSION: Biophysical profile score = 8/8 RPTAT: HH .Nando Abrams MD, MD Date Time Electronically viewed and signed by .Nando Abrams MD, on 08/22/2016 18:26 .W/
[2016-08-22 18:48] LABS: ADD SCAN DIFF NO
[2016-08-22 18:51] LABS: BASOPHIL # 0.1 10^3/ul (0.0-0.1); BASOPHILS % 0.3 % (0.0-2.0); EOSINOPHILS # 0.1 10^3/ul (0.0-0.5); EOSINOPHILS % 0.9 % (0.0-7.0); HEMATOCRIT 39.2 % (37.0-47.0); HEMOGLOBIN 13.3 g/dl (12.0-16.0); LYMPHOCYTES # 2.7 10^3/ul (0.8-2.9); LYMPHOCYTES % 16.7 % (15.0-51.0); MEAN CORPUSCULAR HEMOGLOBIN 28.4 pg (29.0-33.0); MEAN CORPUSCULAR HGB CONC 33.9 g/dl (32.0-37.0); MEAN CORPUSCULAR VOLUME 83.8 fl (82.0-101.0); MEAN PLATELET VOLUME 11.3 fl (7.4-10.4); MONOCYTE # 0.7 10^3/ul (0.3-0.9); MONOCYTES % 4.4 % (0.0-11.0); NEUTROPHIL # 12.7 10^3/ul (1.6-7.5); NEUTROPHILS % 77.4 % (39.0-77.0); PLATELET COUNT 494 10^3/UL (140-415); RED BLOOD COUNT 4.68 10^6/ul (4.20-5.40); RED CELL DISTRIBUTION WIDTH 13.8 % (11.5-14.5); WHITE BLOOD COUNT 16.4 10^3/ul (4.8-10.8)
[2016-08-22 19:08] LABS: ALBUMIN 3.5 g/dl (3.3-4.9)
[2016-08-22 19:09] LABS: POTASSIUM 3.7 mmol/L (3.5-5.1)
[2016-08-22 19:11] LABS: ALBUMIN/GLOBULIN RATIO 0.89; BILIRUBIN,INDIRECT 0.2 mg/dl (0-1.1); BILIRUBIN,TOTAL 0.2 mg/dl (0.2-1.3); CREATININE 0.56 mg/dl (0.44-1.00); TOTAL PROTEIN 7.4 g/dl (6.1-8.1)
[2016-08-22 19:12] LABS: CALCIUM 9.7 mg/dl (8.4-10.2)
[2016-08-22] MEDS: DIPHENHYDRAMINE 50 MG CAP PO SCH (21:36)
[2016-08-23] MEDS: ACCUCHECK XX SCH ×5 (02:00→19:42)
[2016-08-23] MEDS: INSULIN ASPART [NOVOLOG] 3 ML PEN SC SCH ×5 (08:49→20:30)
[2016-08-23] MEDS: MULTIVIT/MIN/FOLATE/IRON/PREN TAB PO SCH (08:50)
[2016-08-23] MEDS: NPH, HUMAN INSULIN ISOPHANE 3ML VIAL SC SCH ×2 (08:50→21:15)
[2016-08-23] MEDS: FERROUS SULFATE (EC) 325 MG TAB PO SCH (08:50)
[2016-08-23] MEDS: NIFEdipine (XL) 30 MG TAB PO SCH (08:51)
[2016-08-23] MEDS: LABETALOL 200 MG TAB PO SCH ×2 (08:51→21:13)
[2016-08-23] MEDS: DOCUSATE SODIUM 100 MG CAP PO SCH (08:51)
[2016-08-23] MEDS: metFORMIN (XR) 500 MG TAB PO SCH ×2 (08:51→21:13)
--- NOTE | 2016-08-23 16:39 | QN ---
Documentation Comment No complaint Afebrile VSS Strip Appropriate for GA AST, ALT, plt normal Continue with present care. DANUTA BUTTERFIELD MD Aug 23, 2016 16:39
[2016-08-23] MEDS: DIPHENHYDRAMINE 50 MG CAP PO SCH (21:12)
[2016-08-24] MEDS: ACCUCHECK XX SCH ×5 (02:00→19:29)
[2016-08-24] MEDS: FERROUS SULFATE (EC) 325 MG TAB PO SCH (09:00)
[2016-08-24] MEDS: metFORMIN (XR) 500 MG TAB PO SCH ×2 (09:01→22:58)
[2016-08-24] MEDS: DOCUSATE SODIUM 100 MG CAP PO SCH (09:01)
[2016-08-24] MEDS: MULTIVIT/MIN/FOLATE/IRON/PREN TAB PO SCH (09:01)
[2016-08-24] MEDS: LABETALOL 200 MG TAB PO SCH ×2 (09:01→21:03)
[2016-08-24] MEDS: NIFEdipine (XL) 30 MG TAB PO SCH (09:02)
[2016-08-24] MEDS: NPH, HUMAN INSULIN ISOPHANE 3ML VIAL SC SCH ×2 (09:03→20:58)
[2016-08-24] MEDS: INSULIN ASPART [NOVOLOG] 3 ML PEN SC SCH ×5 (09:04→21:00)
--- NOTE | 2016-08-24 13:17 | QN ---
Documentation Comment pt doing well vss exam wnl ap chtn stable contiue care GARY FRANCE MD Aug 24, 2016 13:17
[2016-08-24] MEDS: DIPHENHYDRAMINE 50 MG CAP PO SCH (22:57)
[2016-08-25] VITALS (7 sets, daily range): BP systolic 140–166; BP diastolic 73–97; PULSE 81–85; RESP 18–19
[2016-08-25] MEDS: ACCUCHECK XX SCH ×4 (02:11→13:30)
[2016-08-25] MEDS: NPH, HUMAN INSULIN ISOPHANE 3ML VIAL SC SCH (08:47)
[2016-08-25] MEDS: INSULIN ASPART [NOVOLOG] 3 ML PEN SC SCH (08:50)
[2016-08-25] MEDS: FERROUS SULFATE (EC) 325 MG TAB PO SCH (08:52)
[2016-08-25] MEDS: NIFEdipine (XL) 30 MG TAB PO SCH (08:53)
[2016-08-25] MEDS: DOCUSATE SODIUM 100 MG CAP PO SCH (08:53)
[2016-08-25] MEDS: LABETALOL 200 MG TAB PO SCH ×2 (08:54→21:31)
[2016-08-25] MEDS: metFORMIN (XR) 500 MG TAB PO SCH (08:55)
[2016-08-25] MEDS: MULTIVIT/MIN/FOLATE/IRON/PREN TAB PO SCH (09:03)
[2016-08-25] MEDS ORDERED: LACTATED RINGER'S 1,000 ML IV SCH (10:42)
[2016-08-25 10:43] LABS: ADD SCAN DIFF NO
--- NOTE | 2016-08-25 10:48 | RADRPT ---
PROCEDURE: US OB biophysical profile. CLINICAL INDICATION: decreased movements, decels TECHNIQUE: Multiple sonographic images of the pelvis were obtained. The images were reviewed on a PACS workstation. COMPARISON: 08/22/2016 FINDINGS: There is a single viable intrauterine gestation. Cardiac activity is present with 163 beats per min [place]. There is a breech presentation. The placenta is anterior. There is no evidence of placental abruption. There is a normal amount of amniotic fluid with an SILKE = 17.1 cm. There is no evidence of a nuchal cord. Biophysical profile: movement 2/2 tone 2/2. breathing 2/2 SILKE 2/2 Total 02/03 RPTAT: AA . IMPRESSION: Normal biophysical profile. . .Zachariah Keyes MD, Date Time Electronically viewed and signed by .Zachariah Keyes MD, MD on 08/25/2016 10:48 .S/
[2016-08-25 10:50] LABS: BASOPHIL # 0.1 10^3/ul (0.0-0.1); BASOPHILS % 0.4 % (0.0-2.0); EOSINOPHILS # 0.1 10^3/ul (0.0-0.5); EOSINOPHILS % 0.7 % (0.0-7.0); HEMATOCRIT 40.1 % (37.0-47.0); HEMOGLOBIN 13.5 g/dl (12.0-16.0); LYMPHOCYTES # 2.5 10^3/ul (0.8-2.9); LYMPHOCYTES % 15.7 % (15.0-51.0); MEAN CORPUSCULAR HEMOGLOBIN 28.5 pg (29.0-33.0); MEAN CORPUSCULAR HGB CONC 33.7 g/dl (32.0-37.0); MEAN CORPUSCULAR VOLUME 84.6 fl (82.0-101.0); MEAN PLATELET VOLUME 11.4 fl (7.4-10.4); MONOCYTE # 0.8 10^3/ul (0.3-0.9); MONOCYTES % 4.7 % (0.0-11.0); NEUTROPHIL # 12.6 10^3/ul (1.6-7.5); NEUTROPHILS % 78.2 % (39.0-77.0); PLATELET COUNT 486 10^3/UL (140-415); RED BLOOD COUNT 4.74 10^6/ul (4.20-5.40); RED CELL DISTRIBUTION WIDTH 13.9 % (11.5-14.5); WHITE BLOOD COUNT 16.1 10^3/ul (4.8-10.8)
[2016-08-25] MEDS ORDERED: MISOPROSTOL 200 MCG TAB PR PRN ×2 (11:00→16:30)
[2016-08-25] MEDS ORDERED: METHYLERGONOVINE 0.2 MG INJ IM PRN (11:00)
[2016-08-25] MEDS ORDERED: FAMOTIDINE 20 MG TAB PO ONE (11:00)
[2016-08-25] MEDS ORDERED: OXYTOCIN 30 UNITS/LR 500 ML IV PRN ×2 (11:00→16:30)
[2016-08-25] MEDS ORDERED: CITRIC ACID/NA CITRATE 30 ML CUP PO ONE (11:00)
[2016-08-25] MEDS ORDERED: METOCLOPRAMIDE 10 MG INJ IV ONE (11:00)
[2016-08-25] MEDS ORDERED: CARBOPROST 250 MCG INJ IM PRN ×2 (11:00→16:30)
[2016-08-25 11:06] LABS: INR 0.9; PARTIAL THROMBOPLASTIN TIME 27.3 Sec (25.0-35.0); PROTIME 12.1 Sec (12.2-14.2); PT RATIO 0.9
[2016-08-25 11:15] LABS: ALBUMIN 3.7 g/dl (3.3-4.9); POTASSIUM 3.8 mmol/L (3.5-5.1)
[2016-08-25 11:17] LABS: ALBUMIN/GLOBULIN RATIO 1.02; BILIRUBIN,INDIRECT 0.4 mg/dl (0-1.1); BILIRUBIN,TOTAL 0.4 mg/dl (0.2-1.3); CREATININE 0.54 mg/dl (0.44-1.00); TOTAL PROTEIN 7.3 g/dl (6.1-8.1)
[2016-08-25 11:18] LABS: CALCIUM 9.5 mg/dl (8.4-10.2)
[2016-08-25] MEDS ORDERED: FAMOTIDINE 20 MG INJ IV ONE (11:30)
[2016-08-25] MEDS: CEFAZOLIN 2 GM/50 ML (PMX) 50 ML IV SCH ×3 (11:45→12:54)
[2016-08-25] MEDS: MAGNESIUM SULFATE 20 GM/500 ML 500 ML IV SCH ×3 (11:45→17:24)
[2016-08-25] MEDS ORDERED: LABETALOL HCL 20MG INJ ONE (11:46)
[2016-08-25] MEDS ORDERED: FENTAnyl 50 MCG/ML VIAL ONE (11:48)
[2016-08-25] MEDS ORDERED: EPHEDrine SULFATE 50 MG/5 ML SYG ONE (11:48)
[2016-08-25] MEDS ORDERED: PHENYLephrine (100 MCG/ML) 5ML SYG ONE (11:48)
[2016-08-25] MEDS ORDERED: morphine SULFATE/PF (10 MG/10 ML) INJ ONE (11:48)
[2016-08-25] MEDS ORDERED: MAGNESIUM SULFATE 4 GM/100 ML 100 ML ONE (11:49)
[2016-08-25] MEDS ORDERED: MAGNESIUM SULFATE 4 GM/100 ML 100 ML IV SCH (12:00)
[2016-08-25] MEDS ORDERED: LABETALOL HCL 20MG INJ IV ONE (12:00)
--- NOTE | 2016-08-25 12:32 | PREOPHP ---
DATE OF ADMISSION: 08/06/2016 HISTORY OF PRESENT ILLNESS: A 41-year-old female 4, para 1-0-2-1, was admitted on 7 due to increasing blood pressure and intrauterine growth restriction. The patient with history of chronic hypertension; however, the patient's blood pressure was noted to be increasing. PAST MEDICAL HISTORY: Chronic hypertension. PAST SURGICAL HISTORY: Unremarkable. ALLERGIES: NO KNOWN ALLERGIES. FAMILY HISTORY: Diabetes and hypertension. COURSE: Significant for gestational diabetes controlled by insulin. PHYSICAL EXAMINATION: VITAL SIGNS: The patient is afebrile. Vital signs stable. HEAD, NECK AND CHEST: Within normal limits. ABDOMEN: Soft, nontender and gravid. EXTREMITIES: Within normal limits. NEUROLOGIC: Within normal limits. HOSPITAL COURSE: The patient was admitted on 08/06/2016. Per recommendation of perinatologist, the patient was to remain in the hospital until delivery. The patient had workup for preeclampsia and the patient's 24-hour urine total protein was noted to be elevated. The patient was noted to have s uperimposed preeclampsia. Patient also had obstetric ultrasound by perinatologist prior to admissio n, which has revealed intrauterine growth restriction. The patient was monitored closely, both for her blood pressure and preeclampsia as well as monitoring of the baby. On 08/25/2016, on monitoring there were recurrent heart decelerations. The patient's heart tracing was reviewed by Dr. Siddiqui, perinatologist, who recommends to go on with delivery by an emergency section. The patient's blood pressure also has been noted to be increasing, systolic over 200, diastolic over 120. The patient is started on intravenous magnesium sulfate for seizure prophylaxis and labetalol will b e given as well as needed to control the patient's blood pressure. Risks, benefits and alternatives of the procedure were explained to the patient. The patient said she understood and gave informed consent for the procedure. Dictated By: DANUTA SANTIAGO/YOU Conf#: [id number] DID#: [id number]
[2016-08-25] MEDS ORDERED: ONDANSETRON 4 MG INJ ONE (12:37)
[2016-08-25 12:54] LABS: ADD UMIC YES; URINE BILIRUBIN (Dip) NEGATIVE (NEGATIVE); URINE BLOOD (Dip) TRACE (NEGATIVE); URINE COLOR LT. YELLOW (YELLOW); URINE GLUCOSE (Dip) NEGATIVE (NEGATIVE); URINE KETONES (Dip) NEGATIVE (NEGATIVE); URINE LEUKOCYTE ESTERASE (Dip) NEGATIVE (NEGATIVE); URINE NITRITE (Dip) NEGATIVE (NEGATIVE); URINE TOTAL PROTEIN (Dip) 1+ (NEGATIVE); URINE UROBILINOGEN (Dip) 0.2 E.U./dL (0.1-1.0)
[2016-08-25] MEDS ORDERED: DIPHENHYDRAMINE 50 MG INJ IV PRN (13:30)
[2016-08-25] MEDS ORDERED: HYDROmorphONE 1 MG/ML SYG IV PRN ×2 (13:30)
[2016-08-25] MEDS ORDERED: ZOLPIDEM 5 MG TAB PO PRN (13:30)
[2016-08-25] MEDS ORDERED: NALOXONE (0.4 MG/ML) INJ IV PRN (13:30)
[2016-08-25] MEDS ORDERED: ONDANSETRON 4 MG INJ IV PRN (13:30)
[2016-08-25] MEDS ORDERED: PROCHLORPERAZINE 10 MG INJ IV PRN (13:30)
[2016-08-25 13:40] LABS: BACTERIA,URINE OCCASIONAL; SQUAMOUS EPITHELIAL CELL,UR FEW; URINE RBCS 0-2 /HPF (0)
[2016-08-25] MEDS: KETOROLAC 30 MG INJ IV PRN (13:53)
--- NOTE | 2016-08-25 15:40 | OPR ---
DATE OF OPERATION: 08/25/2016 PREOPERATIVE DIAGNOSES: at 32+ weeks with chronic hypertension, superimposed preeclampsia , growth restriction and non-reassuring heart tracing. POSTOPERATIVE DIAGNOSES: at 32+ weeks with chronic hypertension, superimposed preeclampsi a, growth restriction and non-reassuring heart tracing. OPERATION PERFORMED: Primary low transverse section. SURGEON: DANUTA BUTTERFIELD MD. STEAM BONE PRESS TENDER: GARY FRANCE MD. ANESTHESIA: Spinal. ANESTHESIOLOGIST: LAURYN DUONG DO. PROCEDURE: The patient was taken to the operating room and placed on the operating table. After keita ccessful spinal anesthesia was given, the patient was placed in supine position. The area was prepa red and draped in the usual sterile fashion. Spinal anesthesia was tested and was satisfactory. Us ing a scalpel, Pfannenstiel incision was made about 2 fingerbreadths above the symphysis pubis. The incision was carried down to the fascia. The fascia was incised and extended bilaterally with Deleon scissors. Two Beau's were used to separate the fascia from the muscle. The muscle was dissecte d in midline down to peritoneum. The peritoneum was bluntly entered. Using scalpel, a small transv erse incision was made on the lower segment of the uterus. Upon entering the uterine cavity, bandag e scissors were inserted to extend the incision bilaterally. The baby was delivered from right sacr al anterior position. After suctioning clear of amniotic fluid, the baby was handed off to the neon atologist in attendance. Apgars were 8 and 9. The placenta was delivered without difficulty. The uterus was closed with #1 Monocryl in continuous locked fashion. After assuring hemostasis, both ov ray and tubes were inspected, all looked normal. The peritoneal cavity was irrigated with warm sa line. The peritoneum was closed with 2-0 Vicryl continuous. The fascia was closed with #1 Vicryl c ontinuous in 2 segments. Subcutaneous tissue was reapproximated with 2-0 plain. The skin was close d with fernando. ESTIMATED BLOOD LOSS: 600 mL. COUNTS: All counts were correct. Dictated By: DANUTA BUTTERFIELD MD GD/NTS Conf#: [id number] DID#: [id number]
[2016-08-25] MEDS ORDERED: LANOLIN 7 GM TUBE TOP PRN (16:30)
[2016-08-25] MEDS: LACTATED RINGER'S 1,000 ML IV SCH ×3 (16:30→19:00)
[2016-08-25] MEDS: OXYTOCIN 30 UNITS/LR 500 ML IV SCH (17:22)
[2016-08-25] MEDS: SENNA/DOCUSATE NA (8.6MG/50MG) TAB PO SCH (21:00)
[2016-08-26] VITALS (14 sets, daily range): BP systolic 100–140; BP diastolic 63–86; PULSE 76–128; RESP 18–20
[2016-08-26] MEDS: OXYTOCIN 30 UNITS/LR 500 ML IV SCH (00:24)
[2016-08-26] MEDS: KETOROLAC 30 MG INJ IV PRN ×2 (01:37→11:56)
[2016-08-26] MEDS: MAGNESIUM SULFATE 20 GM/500 ML 500 ML IV SCH ×2 (04:04→07:23)
[2016-08-26 06:28] LABS: CBV Base Excess -4.4 mmol/L; CBV COHb 1.8 %; CBV Oxygen Sat 80.2 mmHG; CBV Total Hemglobin 14.5 g/dl; Cord Blood Venous AADO2 68.2 mmHg; Cord Blood Venous pO2 34.8 mmHG (15.0-45.0); Fraction OxyHgb Cord Venous 78.1 %; MODE ROOM AIR; MetHgb Cord Venous 0.8 %; Sample Type CBV
[2016-08-26] MEDS: LACTATED RINGER'S 1,000 ML IV SCH ×3 (07:25→11:00)
[2016-08-26] MEDS: ACCUCHECK XX SCH ×7 (07:30→20:05)
[2016-08-26 08:14] LABS: ADD SCAN DIFF NO
[2016-08-26 08:24] LABS: BASOPHIL # 0.1 10^3/ul (0.0-0.1); BASOPHILS % 0.3 % (0.0-2.0); EOSINOPHILS # 0.2 10^3/ul (0.0-0.5); EOSINOPHILS % 0.9 % (0.0-7.0); HEMATOCRIT 36.6 % (37.0-47.0); HEMOGLOBIN 12.4 g/dl (12.0-16.0); LYMPHOCYTES # 1.6 10^3/ul (0.8-2.9); LYMPHOCYTES % 8.6 % (15.0-51.0); MEAN CORPUSCULAR HEMOGLOBIN 28.6 pg (29.0-33.0); MEAN CORPUSCULAR HGB CONC 33.9 g/dl (32.0-37.0); MEAN CORPUSCULAR VOLUME 84.5 fl (82.0-101.0); MEAN PLATELET VOLUME 11.5 fl (7.4-10.4); MONOCYTE # 0.7 10^3/ul (0.3-0.9); MONOCYTES % 3.8 % (0.0-11.0); NEUTROPHIL # 15.6 10^3/ul (1.6-7.5); NEUTROPHILS % 85.8 % (39.0-77.0); PLATELET COUNT 436 10^3/UL (140-415); RED BLOOD COUNT 4.33 10^6/ul (4.20-5.40); RED CELL DISTRIBUTION WIDTH 14.1 % (11.5-14.5); WHITE BLOOD COUNT 18.1 10^3/ul (4.8-10.8)
[2016-08-26] MEDS: SENNA/DOCUSATE NA (8.6MG/50MG) TAB PO SCH ×2 (08:56→21:00)
[2016-08-26] MEDS: LABETALOL 200 MG TAB PO SCH ×2 (08:57→21:00)
--- NOTE | 2016-08-26 14:12 | CONS ---
Date/Time of Note Date/Time of Note DATE: 08/26/16 TIME: 14:06 Assessment/Plan Assessment/Plan Problems: (1) Diabetes mellitus type 2 in obese Status: Chronic Comment: She has been counseled carefully about the usage of her medications while she is breast-feeding. When she is done breast-feeding we can expand her over to a more oral agent role. In addition of counseled her about the disease effects of a modest degree of exercise and weight loss protocol and the benefits of these. For now given that she is merely her insulin needs should be significantly reduced. She will be on metformin which is acceptable under her current circumstances and then will adjust upward on the dosage as an outpatient. (2) Obesity (BMI 30-39.9) Status: Chronic Comment: Counseled extensively (3) Essential hypertension affecting Status: Chronic Comment: 1 she is successfully recuperated then will transition her over to the usage of an soo inhibitor when she is not breast-feeding Consultation Date/Type/Reason Admit Date/Time Aug 06, 2016 at 13:54 Date of Consultation: Aug 26, 2016 Type of Consultation: Endocrinology Reason for Consultation Diabetes mellitus type 2; essential hypertension; obesity. Patient is breast- feeding Referring Provider: DANUTA BUTTERFIELD MD Hx of Present Illness Charming 41-year-old Egyptian female with a history of hypertension diabetes mellitus type 2. Her regular primary care physician was at [facility], Dr. Dane Oneal who has left informed a separate practice. She has been without primary care services and has been under the management of 1 of their [employer]OLEUM MECHANIC's as well as the perinatology group. At this facility. Previously she was on Januvia with metformin and glipizide and atenolol for blood pressure. When she became those medications were changed for appropriate measures. She reports she is not planning to have any future children was actually scheduled to have a tubal ligation although apparently that was not done at the time of her . 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 High school education lives with spouse and other child Exam/Review of Systems Vital Signs Vitals Vital Signs Date Time Temp Pulse Resp B/P Pulse Ox O2 Delivery O2 Flow Rate FiO2 08/26/16 13:00 76 20 100/63 Room Air 08/26/16 11:56 98.0 98 08/25/16 23:20 21 Intake and Output 08/25/16 08/25/16 08/26/16 15:00 23:00 07:00 Intake Total 1050 ml 725 ml 1050 ml Output Total 400 ml 600 ml 580 ml Balance 650 ml 125 ml 470 ml Exam Constitutional: alert, oriented Respiratory: clear to auscultation, normal air movement Cardiovascular: nl pulses, regular rate and rhythm Gastrointestinal: nl liver, spleen, non-tender, soft Results Result Diagram: 08/26/16 0728 08/25/16 1030 Results 24 hrs Laboratory Tests Test 08/25/16 17:35 08/25/16 20:05 08/25/16 23:45 08/26/16 07:28 Magnesium Level 4.1 H 4.7 H 5.2 *H Bedside Glucose 149 Basophils # 0.1 Basophils % 0.3 Eosinophils # 0.2 Eosinophils % 0.9 Hematocrit 36.6 L Hemoglobin 12.4 Lymphocytes # 1.6 Lymphocytes % 8.6 L Mean Corpuscular Hemoglobin 28.6 L Mean Corpuscular Hemoglobin Concent 33.9 Mean Corpuscular Volume 84.5 Mean Platelet Volume 11.5 H Monocytes # 0.7 Monocytes % 3.8 Neutrophils # 15.6 H Neutrophils % 85.8 H Nucleated Red Blood Cells # 0.0 Nucleated Red Blood Cells % 0.0 Platelet Count 436 H Red Blood Count 4.33 Red Cell Distribution Width 14.1 White Blood Count 18.1 H Test 08/26/16 08:08 08/26/16 11:43 Bedside Glucose 161 172 Medications Medications Current Medications Diagnostic Test (Pha) (Accucheck) 1 ea 02 XX Last administered on 08/25/16t 02: 11; Admin Dose 1 EA; Start 08/07/16 at 02:00 Diagnostic Test (Pha) (Accucheck) 1 ea FBSPP XX Last administered on 08/26/16 11:49; Admin Dose 1 EA; Start 08/07/16 at 14:00 Labetalol HCl (Normodyne) 200 mg Q12 PO Last administered on 08/26/16 08:57; Admin Dose 200 MG; Start 08/10/16 at 21:00 Oxycodone/ Acetaminophen (Percocet (5/ 325)) 1 tab Q4H PRN PO PAIN LEVEL 4-6; Start 08/25/16 at 16:30 Oxycodone/ Acetaminophen (Percocet (5/ 325)) 2 tab Q4H PRN PO PAIN LEVEL 7-10; Start 08/25/16 at 16:30 Simethicone (Mylicon) 160 mg Q8H PRN PO DISTENSION/GAS/BLOATING; Start at 16:30 Senna/Docusate Sodium (Senokot-S) 1 tab BID PO Last administered on 08/26/16 08:56; Admin Dose 1 TAB; Start 08/25/16 at 21:00 Diphtheria/ Tetanus/Acell Pertussis 0.5 ml 0.5 ml ONCE ONCE IM* ; Start 08/28/16 at 09:00; Stop 08/28/16 at 09:01 Oxytocin/Lactated Ringer's 500 ml @ 0 mls/hr ONCE PRN IV For Hemorrhage Management; Start 08/25/16 at 16:30 Carboprost Tromethamine (Hemabate) 250 mcg ONCE PRN IM VAGINAL BLEEDING; Start 08/25/16 at 16:30 Misoprostol (Cytotec) 1,000 mcg ONCE PRN VA VAGINAL BLEEDING; Start 08/25/16 at 16:30 ARTEM HONEYCUTT MD Aug 26, 2016 14:11
--- NOTE | 2016-08-26 14:53 | PN ---
Date/Time of Note Date/Time of Note DATE: 08/26/16 TIME: 14:44 OB Subjective Subjective Subjective Laboratory Tests Test 08/25/16 17:35 08/25/16 20:05 08/25/16 23:45 08/26/16 07:28 Magnesium Level 4.1mg/dl 4.7mg/dl 5.2mg/dl Bedside Glucose 149mg/dL Basophils # 0.110^3/ul Basophils % 0.3% Eosinophils # 0.210^3/ul Eosinophils % 0.9% Hematocrit 36.6% Hemoglobin 12.4g/dl Lymphocytes # 1.610^3/ul Lymphocytes % 8.6% Mean Corpuscular Hemoglobin 28.6pg Mean Corpuscular Hemoglobin Concent 33.9g/dl Mean Corpuscular Volume 84.5fl Mean Platelet Volume 11.5fl Monocytes # 0.710^3/ul Monocytes % 3.8% Neutrophils # 15.610^3/ul Neutrophils % 85.8% Nucleated Red Blood Cells # 0.010^3/ul Nucleated Red Blood Cells % 0.0/100WBC Platelet Count 04096^3/UL Red Blood Count 4.3310^6/ul Red Cell Distribution Width 14.1% White Blood Count 18.110^3/ul Test 08/26/16 08:08 08/26/16 11:43 08/26/16 14:19 Bedside Glucose 161mg/dL 172mg/dL 154mg/dL Current Medications Medications (Trade) Dose Ordered Sig/Aiden Route PRN Reason Start Time Stop Time Status Last Admin Dose Admin Lactated Ringer's (Lr) 1,000 ml @ 125 mls/hr Q8H IV 08/06/16 15:06 08/06/16 15:24 DC Betamethasone Acet/Betameth SodPhos (Celestone Soluspan) 12 mg Q24H IM 08/06/16 15:30 08/07/16 15:31 DC 08/07/16 15:56 Prenat Multivit/ Fuel Cell Battery Technician/Iron/Folic Ac ( S) 1 tab DAILY PO 08/07/16 09:00 08/25/16 16:27 DC 08/25/16 09:03 Ferrous Sulfate (Ferrous Sulfate (Ec)) 325 mg DAILY PO 08/07/16 09:00 08/25/16 16:27 DC 08/25/16 08:52 Docusate Sodium (Colace) 100 mg DAILY PO 08/07/16 09:00 08/25/16 16:27 DC 08/25/16 08:53 Acetaminophen (Tylenol Tab) 650 mg Q4H PRN PO PAIN AND OR ELEVATED TEMP 08/06/16 15:30 08/25/16 16:27 DC Labetalol HCl (Normodyne) 200 mg BID PO 08/06/16 21:00 08/10/16 10:06 DC 08/10/16 08:51 Metformin HCl (Glucophage Xr) 1,000 mg BID PO 08/06/16 21:00 08/25/16 16:27 DC 08/25/16 08:55 Insulin Aspart (Novolog Insulin Pen) 10 unit AC BREAKFAST SC 08/07/16 07:30 08/25/16 16:27 DC 08/25/16 08:50 Insulin Human NPH (Humulin N) 24 unit AC BREAKFAST SC 08/07/16 07:30 08/25/16 16:27 DC 08/25/16 08:47 Insulin Aspart (Novolog Insulin Pen) 10 unit AC DINNER SC 08/06/16 17:35 08/25/16 16:27 DC 08/24/16 17:17 Insulin Human NPH 14 unit 14 unit QHS SC 08/06/16 21:00 08/14/16 10:37 DC 08/13/16 21:25 Lactated Ringer's (Lr) 1,000 ml @ 100 mls/hr Q10H IV 08/06/16 15:30 08/07/16 13:11 DC 08/07/16 10:25 Miscellaneous Information 1 ea NOTE XX 08/06/16 15:30 08/25/16 16:28 DC Glucose (Glutose) 15 gm Q15M PRN PO DECREASED GLUCOSE 08/06/16 15:30 08/25/16 16:28 DC Glucose (Glutose) 22.5 gm Q15M PRN PO DECREASED GLUCOSE 08/06/16 15:30 08/25/16 16:28 DC Dextrose (D50w Syringe) 25 ml Q15M PRN IV DECREASED GLUCOSE 08/06/16 15:30 08/25/16 16:27 DC Dextrose (D50w Syringe) 50 ml Q15M PRN IV DECREASED GLUCOSE 08/06/16 15:30 08/25/16 16:27 DC Glucagon (Glucagen) 1 mg Q15M PRN IM DECREASED GLUCOSE 08/06/16 15:30 08/25/16 16:28 DC Glucose (Glutose) 15 gm Q15M PRN BUCCAL DECREASED GLUCOSE 08/06/16 15:30 08/25/16 16:28 DC Insulin Aspart (Novolog Insulin Pen) NOVOLOG *MILD* ALGORITHM WITH MEALS BEDTIME SC 08/06/16 18:05 08/07/16 11:48 DC 08/06/16 20:29 Miscellaneous Information (* Miscellaneous Pharmacy Order) HYPOGLYCEMIA PROTOCOL w... ONCE ONCE XX 08/06/16 16:30 08/06/16 16:51 DC Miscellaneous Information (* Miscellaneous Pharmacy Order) Discontinue Glyburide, Glipizide,... ONCE ONCE XX 08/06/16 16:30 08/06/16 16:51 DC Miscellaneous Information (* Miscellaneous Pharmacy Order) Discontinue all previ... ONCE ONCE XX 08/06/16 16:30 08/06/16 16:51 DC Diagnostic Test (Pha) (Accucheck) 1 ea 02 XX 08/07/16 02:00 08/25/16 02:11 Diagnostic Test (Pha) (Accucheck) 1 ea FBSPP XX 08/07/16 14:00 08/26/16 11:49 Miscellaneous Information (* Miscellaneous Pharmacy Order) 1 ea OB HYPOGLYCEMIA ONCE XX 08/07/16 12:00 08/07/16 12:01 DC Miscellaneous Information (* Miscellaneous Pharmacy Order) 1 ea ONCE ONCE XX 08/07/16 12:00 08/07/16 12:01 DC Miscellaneous Information (* Miscellaneous Pharmacy Order) Discontinue ALL previ... ONCE ONCE XX 08/07/16 12:00 08/07/16 12:01 DC Insulin Aspart (Novolog Insulin Pen) 2 HOURS AFTER MEALS SC 08/07/16 11:30 Cancel Insulin Aspart (Novolog Insulin Pen) NOVOLOG *MILD* ALGORITHM PC MEALS SC 08/07/16 13:00 08/07/16 13:00 DC Insulin Aspart NOVOLOG *MILD* ALGORITHM TID@1130,1430,2030 SC 08/07/16 11:30 08/25/16 16:28 DC 08/24/16 21:00 Lactated Ringer's (Lr) 1,000 ml @ 20 mls/hr Q24H IV 08/09/16 09:30 08/10/16 15:41 DC 08/09/16 09:34 Labetalol HCl (Normodyne) 200 mg Q8 PO 08/10/16 14:00 08/10/16 14:00 DC Labetalol HCl (Normodyne) 200 mg Q12 PO 08/10/16 21:00 08/26/16 08:57 Nifedipine (Procardia Xl) 30 mg DAILY PO 08/10/16 13:30 08/25/16 16:28 DC 08/25/16 08:53 Diphenhydramine HCl (Benadryl) 50 mg HS PO 08/11/16 00:00 08/25/16 16:27 DC 08/24/16 22:57 IV Flush (NS 10 ml) 10 ml Q8H AND PRN ADM IV 08/11/16 07:30 08/12/16 10:37 DC Insulin Human NPH (Humulin N) 10 unit HS SC 08/14/16 21:00 08/17/16 21:52 DC 08/16/16 21:13 Insulin Human NPH 10 unit 10 unit HS SC 08/17/16 22:00 08/25/16 16:28 DC 08/24/16 20:58 Lactated Ringer's (Lr) 1,000 ml @ 125 mls/hr Q8H IV 08/25/16 11:00 08/26/16 13:14 DC Metoclopramide HCl (Reglan) 10 mg ONCE ONCE IV 08/25/16 11:00 08/25/16 11:01 DC 08/25/16 11:21 Citric Acid/ Sodium Citrate (Bicitra) 30 ml ONCE ONCE PO 08/25/16 11:00 08/25/16 11:01 DC 08/25/16 11:21 Famotidine 20 mg 20 mg ONCE ONCE PO 08/25/16 11:00 08/25/16 11:01 Cancel Lactated Ringer's 1,000 ml @ 125 mls/hr Q8H IV 08/25/16 10:42 08/25/16 16:27 DC 08/25/16 11:41 Cefazolin Sodium/ Dextrose 50 ml @ 100 mls/hr ONCE IV 08/25/16 11:00 08/25/16 16:27 DC 08/25/16 12:30 Oxytocin/Lactated Ringer's 500 ml @ 0 mls/hr ONCE PRN IV For Hemorrhage Management 08/25/16 11:00 08/25/16 16:27 DC Methylergonovine Maleate (Methergine) 0.2 mg ONCE PRN IM VAGINAL BLEEDING 08/25/16 11:00 08/25/16 16:28 DC Carboprost Tromethamine (Hemabate) 250 mcg ONCE PRN IM VAGINAL BLEEDING 08/25/16 11:00 08/25/16 16:27 DC Misoprostol (Cytotec) 1,000 mcg ONCE PRN NE VAGINAL BLEEDING 08/25/16 11:00 08/25/16 16:28 DC Famotidine (Pepcid Iv) 20 mg ONCE ONCE IV 08/25/16 11:30 08/25/16 11:31 DC 08/25/16 11:21 Labetalol HCl (Labetalol) 20 mg STK-MED ONCE .ROUTE 08/25/16 11:46 08/25/16 11:47 DC Labetalol HCl (Labetalol) 20 mg ONCE ONCE IV 08/25/16 12:00 08/25/16 12:01 DC 08/25/16 11:51 Ephedrine Sulfate 50 mg 50 mg STK-MED ONCE .ROUTE 08/25/16 11:48 08/25/16 11:49 DC Magnesium Sulfate 100 ml @ 200 mls/hr ONCE IV 08/25/16 12:00 08/25/16 12:29 DC 08/25/16 12:00 Magnesium Sulfate (Magnesium Sulfate 20 Gm/500 ml) 500 ml @ 50 mls/hr Q10H IV 08/25/16 11:46 08/26/16 13:11 DC 08/26/16 07:23 Morphine Sulfate (Duramorph) 10 mg STK-MED ONCE .ROUTE 08/25/16 11:48 08/25/16 11:49 DC Fentanyl (Sublimaze) 100 mcg STK-MED ONCE .ROUTE 08/25/16 11:48 08/25/16 11:49 DC Phenylephrine HCl 500 mcg 500 mcg STK-MED ONCE .ROUTE 08/25/16 11:48 08/25/16 11:49 DC Magnesium Sulfate (Magnesium Sulfate 4 Gm/100 ml) 100 ml @ ud STK-MED ONCE .ROUTE 08/25/16 11:49 08/25/16 11:50 DC Ondansetron HCl (Zofran Inj) 4 mg STK-MED ONCE .ROUTE 08/25/16 12:37 08/25/16 12:38 DC Naloxone HCl (Narcan) 0.1 mg Q2M PRN IV FOR RESP RATE 8 OR LESS 08/25/16 13:30 08/26/16 13:29 DC Ketorolac Tromethamine (Toradol) 30 mg Q6H PRN IV PAIN 08/25/16 13:30 08/26/16 13:29 DC 08/26/16 11:56 Hydromorphone HCl (Dilaudid) 0.2 mg Q3H PRN IV PAIN LEVEL 1-5 08/25/16 13:30 08/26/16 13:29 DC Hydromorphone HCl (Dilaudid) 0.4 mg Q3H PRN IV PAIN LEVEL 6-10 08/25/16 13:30 08/26/16 13:29 DC 08/25/16 17:16 Diphenhydramine HCl (Benadryl) 25 mg Q6H PRN IV ITCHING 08/25/16 13:30 08/26/16 13:29 DC Ondansetron HCl (Zofran Inj) 4 mg Q6H PRN IV NAUSEA AND/OR VOMITING 08/25/16 13:30 08/26/16 13:29 DC Prochlorperazine (Compazine Inj) 10 mg ONCE PRN IV NAUSEA AND/OR VOMITING 08/25/16 13:30 08/26/16 13:29 DC 08/25/16 16:58 Zolpidem Tartrate 5 mg 5 mg HS MAY REPEAT X 1 PRN PO INSOMNIA 08/25/16 13:30 08/26/16 13:29 DC Lactated Ringer's 1,000 ml @ 125 mls/hr Q8H IV 08/25/16 16:21 08/26/16 13:14 DC 08/26/16 07:25 Oxytocin/Lactated Ringer's 500 ml @ 125 mls/hr Q4H IV 08/25/16 16:21 08/26/16 00:20 DC 08/26/16 00:24 Oxycodone/ Acetaminophen (Percocet (5/ 325)) 1 tab Q4H PRN PO PAIN LEVEL 4-6 08/25/16 16:30 Oxycodone/ Acetaminophen (Percocet (5/ 325)) 2 tab Q4H PRN PO PAIN LEVEL 7-10 08/25/16 16:30 Simethicone (Mylicon) 160 mg Q8H PRN PO DISTENSION/GAS/BLOATING 08/25/16 16:30 Senna/Docusate Sodium (Senokot-S) 1 tab BID PO 08/25/16 21:00 08/26/16 08:56 Lanolin (Xjx-[id number]) 1 applic BEDSIDE MEDICATION PRN TOP BEDSIDE FOR YESSY TO NIPPLES 08/25/16 16:30 Diphtheria/ Tetanus/Acell Pertussis 0.5 ml 0.5 ml ONCE ONCE IM* 08/28/16 09:00 08/28/16 09:01 Oxytocin/Lactated Ringer's 500 ml @ 0 mls/hr ONCE PRN IV For Hemorrhage Management 08/25/16 16:30 Carboprost Tromethamine (Hemabate) 250 mcg ONCE PRN IM VAGINAL BLEEDING 08/25/16 16:30 Misoprostol (Cytotec) 1,000 mcg ONCE PRN NE VAGINAL BLEEDING 08/25/16 16:30 Diagnostic Test (Pha) (Accucheck) 1 ea FASTING BLOOD SUGAR XX 08/26/16 06:00 08/26/16 08:15 Metformin HCl (Glucophage) 500 mg BID WITH MEALS PO 08/26/16 18:05 Post C Section day 2 Patient is doing fairly well, Her Bp is abound 120/75 now 2 hours post prandial 154. Will ambulate now ambulatory She is afebrile Abdomen is soft , Fundus is firm Moderate amount of lochia Breasts are soft, Nipples are intact No calf tenderness. Will go to NICU to see and breast feed the new born She is placed on Metformin 500 mg BID Will give Labetalol 200 mg if BP if BP over 140/80 ALIS BEST MD Aug 26, 2016 14:53
[2016-08-26] MEDS: metFORMIN 500 MG TAB PO SCH (17:39)
[2016-08-26] MEDS: OXYCODONE/ACETAMINOPHEN (5/325) TAB PO PRN ×2 (18:07→22:50)
[2016-08-27] MEDS: OXYCODONE/ACETAMINOPHEN (5/325) TAB PO PRN ×3 (01:30→15:45)
[2016-08-27] MEDS: ACCUCHECK XX SCH ×6 (02:00→20:05)
[2016-08-27] MEDS: LABETALOL 200 MG TAB PO SCH ×3 (04:18→22:00)
[2016-08-27 08:30] VITALS: BP 133/93; PULSE 95; RESP 19
[2016-08-27] MEDS: SENNA/DOCUSATE NA (8.6MG/50MG) TAB PO SCH ×2 (09:07→20:15)
[2016-08-27] MEDS: metFORMIN 500 MG TAB PO SCH ×2 (09:07→18:08)
[2016-08-27] MEDS ORDERED: GLUCOSE GEL 15 GRAM TUBE BUCCAL PRN (11:00)
[2016-08-27] MEDS ORDERED: GLUCAGON 1 MG INJ IM PRN (11:00)
[2016-08-27] MEDS ORDERED: GLUCOSE GEL 15 GRAM TUBE PO PRN ×2 (11:00)
[2016-08-27] MEDS ORDERED: DEXTROSE 50% 50 ML SYRINGE IV PRN ×2 (11:00)
[2016-08-27 16:00] VITALS: BP 142/82; PULSE 87; RESP 19
--- NOTE | 2016-08-27 17:21 | CONS ---
Date/Time of Note Date/Time of Note DATE: 08/27/16 TIME: 17:20 Assessment/Plan Assessment/Plan Chief Complaint/Hosp Course Pavel 41-year-old Cypriot female with a history of hypertension diabetes mellitus type 2. Her regular primary care physician was at [facility], Dr. Dane Oneal who has left informed a separate practice. 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 At this facility. Previously she was on Januvia with metformin and glipizide and atenolol for blood pressure. When she became those medications were changed for appropriate measures. She reports she is not planning to have any future children was actually scheduled to have a tubal ligation although apparently that was not done at the time of her . She has no known complications of diabetes Problems: (1) Diabetes mellitus type 2 in obese Status: Chronic Comment: Doing well will adjust upward on the metformin to get slightly better control. Ultimately with weight loss her sugars with self-control. This of course will take some time (2) Essential hypertension affecting Status: Chronic Comment: Adequately controlled on simple regimen Consultation Date/Type/Reason Admit Date/Time Aug 06, 2016 at 13:54 Initial Consult Date 08/26/16 Type of Consultation: Endocrinology Referring Provider: DANUTA BUTTERFIELD MD 24 HR Interval Summary Constitutional: no complaints Detailed Summary Respiratory: no complaints Cardiovascular: no complaints Gastrointestinal: pain (Some pain at site) Exam/Review of Systems Vital Signs Vitals Vital Signs Date Time Temp Pulse Resp B/P Pulse Ox O2 Delivery O2 Flow Rate FiO2 08/27/16 16:00 98.0 87 19 142/82 Room Air 08/26/16 11:56 98 08/25/16 23:20 21 Intake and Output 08/26/16 08/26/16 08/27/16 15:00 23:00 07:00 Intake Total 2050 ml 240 ml Output Total 1200 ml 700 ml Balance 850 ml -460 ml Exam Constitutional: alert, oriented Respiratory: clear to auscultation, normal air movement Cardiovascular: nl pulses, regular rate and rhythm Results Result Diagram: 08/26/16 0728 08/25/16 1030 Results 24 hrs Laboratory Tests Test 08/26/16 20:06 08/27/16 06:51 08/27/16 09:06 08/27/16 12:25 Bedside Glucose 190 144 144 188 Test 08/27/16 15:43 Bedside Glucose 139 Medications Medications Current Medications Diagnostic Test (Pha) (Accucheck) 1 ea 02 XX Last administered on 08/25/16 02: 11; Admin Dose 1 EA; Start 08/07/16 at 02:00 Diagnostic Test (Pha) (Accucheck) 1 ea FBSPP XX Last administered on 08/26/16 14:19; Admin Dose 1 EA; Start 08/07/16 at 14:00 Labetalol HCl (Normodyne) 200 mg Q12 PO Last administered on 08/27/16 15:55; Admin Dose 200 MG; Start 08/10/16 at 21:00 Oxycodone/ Acetaminophen (Percocet (5/ 325)) 1 tab Q4H PRN PO PAIN LEVEL 4-6 Last administered on 08/26/16 22:50; Admin Dose 1 TAB; Start 08/25/16 at 16:30 Oxycodone/ Acetaminophen (Percocet (5/ 325)) 2 tab Q4H PRN PO PAIN LEVEL 7-10 Last administered on 08/27/16 15:45; Admin Dose 2 TAB; Start 08/25/16 at 16:30 Simethicone (Mylicon) 160 mg Q8H PRN PO DISTENSION/GAS/BLOATING Last administered on 08/27/16 09:12; Admin Dose 160 MG; Start 08/25/16 at 16:30 Senna/Docusate Sodium (Senokot-S) 1 tab BID PO Last administered on 08/27/16 09 :07; Admin Dose 1 TAB; Start 08/25/16 at 21:00 Diphtheria/ Tetanus/Acell Pertussis 0.5 ml 0.5 ml ONCE ONCE IM* ; Start 08/28/16 at 09:00; Stop 08/28/16 at 09:01 Oxytocin/Lactated Ringer's 500 ml @ 0 mls/hr ONCE PRN IV For Hemorrhage Management; Start 08/25/16 at 16:30 Carboprost Tromethamine (Hemabate) 250 mcg ONCE PRN IM VAGINAL BLEEDING; Start 08/25/16 at 16:30 Misoprostol (Cytotec) 1,000 mcg ONCE PRN DE VAGINAL BLEEDING; Start 08/25/16 at 16:30 Miscellaneous Information 1 ea NOTE XX ; Start 08/27/16 at 11:00 Glucose (Glutose) 15 gm Q15M PRN PO DECREASED GLUCOSE; Start 08/27/16 at 11:00 Glucose (Glutose) 22.5 gm Q15M PRN PO DECREASED GLUCOSE; Start 08/27/16 at 11:00 Dextrose (D50w Syringe) 25 ml Q15M PRN IV DECREASED GLUCOSE; Start 08/27/16 at 11:00 Dextrose (D50w Syringe) 50 ml Q15M PRN IV DECREASED GLUCOSE; Start 08/27/16 at 11:00 Glucagon (Glucagen) 1 mg Q15M PRN IM DECREASED GLUCOSE; Start 08/27/16 at 11:00 Glucose (Glutose) 15 gm Q15M PRN BUCCAL DECREASED GLUCOSE; Start 08/27/16 at 11: 00 ARTEM HONEYCUTT MD Aug 27, 2016 17:21
[2016-08-27 20:10] VITALS: BP 159/90; PULSE 90; RESP 18
--- NOTE | 2016-08-27 20:13 | QN ---
Documentation Comment No complaint Afebrile VSS Abdomen soft POD #2 Stable Increase labetalol to control BP. Management of DM per Endocrinology. DANUTA BUTTERFIELD MD Aug 27, 2016 20:13
[2016-08-27 21:00] VITALS: BP 140/82; PULSE 89; RESP 18
[2016-08-27] MEDS: DIPHENHYDRAMINE 25 MG CAP PO PRN (21:52)
[2016-08-28] VITALS (8 sets, daily range): BP systolic 112–179; BP diastolic 71–100; PULSE 102–111; RESP 18–20; Ht 162.6 cm; Wt 83.8 kg
[2016-08-28] MEDS: OXYCODONE/ACETAMINOPHEN (5/325) TAB PO PRN ×2 (00:23→06:52)
[2016-08-28] MEDS: ACCUCHECK XX SCH ×2 (06:00→17:03)
[2016-08-28] MEDS: LABETALOL 200 MG TAB PO SCH ×3 (06:09→23:17)
[2016-08-28] MEDS ORDERED: DIPHTH/TET/ACEL PERTUSS (ADULT) 0.5 ML VIAL IM* ONE (09:00)
[2016-08-28] MEDS: SENNA/DOCUSATE NA (8.6MG/50MG) TAB PO SCH ×2 (09:09→20:40)
[2016-08-28] MEDS: NIFEdipine (XL) 30 MG TAB PO SCH ×2 (09:09→20:40)
[2016-08-28] MEDS: metFORMIN 500 MG TAB PO SCH ×2 (09:10→17:35)
[2016-08-28] MEDS ORDERED: MAGNESIUM HYDROXIDE 30ML CUP PO ONE (09:30)
[2016-08-28 09:50] LABS: ADD SCAN DIFF NO
[2016-08-28 09:56] LABS: BASOPHILS % 0.3 % (0.0-2.0); EOSINOPHILS # 0.4 10^3/ul (0.0-0.5); EOSINOPHILS % 2.9 % (0.0-7.0); HEMATOCRIT 35.5 % (37.0-47.0); LYMPHOCYTES # 1.8 10^3/ul (0.8-2.9); LYMPHOCYTES % 13.7 % (15.0-51.0); MEAN CORPUSCULAR HEMOGLOBIN 29.1 pg (29.0-33.0); MEAN CORPUSCULAR HGB CONC 33.8 g/dl (32.0-37.0); MEAN CORPUSCULAR VOLUME 86.2 fl (82.0-101.0); MEAN PLATELET VOLUME 11.3 fl (7.4-10.4); MONOCYTE # 0.7 10^3/ul (0.3-0.9); MONOCYTES % 4.9 % (0.0-11.0); NEUTROPHIL # 10.3 10^3/ul (1.6-7.5); NEUTROPHILS % 77.8 % (39.0-77.0); PLATELET COUNT 465 10^3/UL (140-415); RED BLOOD COUNT 4.12 10^6/ul (4.20-5.40); RED CELL DISTRIBUTION WIDTH 14.1 % (11.5-14.5); WHITE BLOOD COUNT 13.3 10^3/ul (4.8-10.8)
--- NOTE | 2016-08-28 13:27 | CONS ---
DATE OF ADMISSION: 08/06/2016 DATE OF CONSULTATION: 08/28/2016 CARDIOLOGY CONSULTATION REASON FOR CONSULTATION: Hypertension, uncontrolled. REQUESTING PHYSICIAN: Dr. Amin HISTORY OF PRESENT ILLNESS: Ms. Gutiérrez is a 41-year-old female who carries a history of hypertension and diabetes mellitus since her first , who is now G4, P2, status post delivery o n the due to the development of preeclampsia, worsening hypertension and intrauterine growth re striction. The patient post-delivery initially had improvement in systolic pressures and now has carrillo d worsening systolic and diastolic blood pressures, most recently 163/100. Given these findings, a cardiology consultation has been requested. The patient at this time denies chest pain or shortness of breath, but does have somewhat of a flat affect at this time and states she is feeling depressed . PAST MEDICAL HISTORY: As above in the HPI. MEDICATIONS: Currently in hospital: 1. Procardia 30 mg p.o. b.i.d. 2. Labetalol 200 mg p.o. q.8. 3. Metformin. 4. Senna p.r.n. 5. Percocet p.r.n. 6. Misoprostol p.r.n. 7. Metformin 1000 mg b.i.d. ALLERGIES: NO KNOWN DRUG ALLERGIES. SOCIAL HISTORY: No tobacco, ETOH or illicit drug use. FAMILY HISTORY: No history of sudden cardiac or early CAD. REVIEW OF SYSTEMS: As above in the HPI. CONSTITUTIONAL: No fevers or chills. PULMONARY: No current shortness of breath. CARDIOVASCULAR: No current chest pain. GASTROINTESTINAL: No vomiting. GENITOURINARY: No hematuria. Status post delivery. PSYCHIATRIC: Possible depression. NEUROLOGIC: No documented history of CVA. ENDOCRINE: Diabetes mellitus. PHYSICAL EXAMINATION: VITAL SIGNS: Temperature of 98.8, blood pressure 160/100, pulse 105, respiratory rate 19, saturatin g100%. GENERAL: The patient is alert, awake, in no acute distress. Does have a flat affect. NECK: JVP approximately 9 cm of water. CHEST: Fair air movement throughout, with mildly decreased breath sounds at the bases bilaterally. HEART: Tachycardic, regular rhythm. Normal S1, S2. A I/ systolic murmur. ABDOMEN: Positive bowel sounds. Mild diffuse tenderness to palpation. EXTREMITIES: No edema, 1+ pulses bilaterally, posterior tibial. LABORATORIES: Most recently from today white count 13.3, hemoglobin of 12.0, platelet count of 465, glucose of 184. Most recent creatinine from the 0.54, BUN of 11. IMAGING STUDIES: As above in the HPI. No further images for my review at this time. ECG: No electrocardiograms for my review at this time. IMPRESSION: 1. Hypertension, uncontrolled, with development of superimposed preeclampsia. 2. Systolic murmur in the setting of recent . 3. Diabetes mellitus. 4. Status post delivery. 5. Possible development of depression. 6. Leukocytosis. RECOMMENDATIONS: 1. At this time, would transfer the patient to telemetry monitoring to follow rhythm and rate contr ol closely. 2. Will check a baseline EKG now to assess for any significant abnormalities and a repeat EKG in morning to assess for any changes. 3. Will check a 2D echo to assess for any end organ damage in the setting of significantly uncontro lled systolic and diastolic blood pressures and longstanding hypertension. 4. Will give the patient IV push p.r.n. hydralazine to improve systolic blood pressure acutely and will up-titrate the patient's Procardia and labetalol in order to improve overall systolic blood pre ssure control. 5. Ongoing evaluation of the patient's diabetes per endocrinology. Thank you for allowing me to take part in the care of this patient. I will continue to follow very closely with you, with further recommendations to be made as the patient progresses through her [facility] clinical course. Dictated By: CATHRYN SALAS/YOU Conf#: [id number] DID#: [id number] CC: DANUTA AMIN MD;*EndCC*
[2016-08-28] MEDS ORDERED: hydrALAzine 20 MG INJ IV PRN (13:30)
--- NOTE | 2016-08-28 13:33 | CONS ---
Date/Time of Note Date/Time of Note DATE: 08/28/16 TIME: 13:31 Assessment/Plan Assessment/Plan Chief Complaint/Hosp Course Pavel 41-year-old Fijian female with a history of hypertension diabetes mellitus type 2. Her regular primary care physician was at [facility], Dr. Dane Oneal who has left informed a separate practice. 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 At this facility. Previously she was on Januvia with metformin and glipizide and atenolol for blood pressure. When she became those medications were changed for appropriate measures. She reports she is not planning to have any future children was actually scheduled to have a tubal ligation although apparently that was not done at the time of her . She has no known complications of diabetes Problems: (1) Diabetes mellitus type 2 in obese Status: Chronic Comment: Her blood sugar control is actually better and that should be noted that most of the Accu-Cheks are listed are the 2 hour postprandial Accu-Cheks. Not a perfect control this is an acceptable level of control in a non state especially patient will be on a calorie restriction losing weight. If there is a desire to tighten this up then we would use NPH insulin (this is what she has at home) at a dosage of approximately 5 units nightly. (2) Obesity (BMI 30-39.9) Status: Chronic Comment: Calorie restriction diet (3) Essential hypertension affecting Status: Chronic Comment: In the last 24 hours her blood pressure has accelerated. I note that the obstetrical staff is called in a cardiology consult and she is getting an echocardiogram now. He is also place her on nifedipine and I will add in Aldomet as blood pressure control. Please note that we need to be cognizant of the fact this patient will be breast-feeding with her choices and medications Consultation Date/Type/Reason Admit Date/Time Aug 06, 2016 at 13:54 Initial Consult Date 08/26/16 Type of Consultation: Endocrinology Reason for Consultation Diabetes mellitus type 2; hypertension Referring Provider: DANUTA BUTTERFIELD MD 24 HR Interval Summary Constitutional: no complaints Detailed Summary Eyes: no complaints ENT: no complaints Respiratory: no complaints Cardiovascular: no complaints Exam/Review of Systems Vital Signs Vitals Vital Signs Date Time Temp Pulse Resp B/P Pulse Ox O2 Delivery O2 Flow Rate FiO2 08/28/16 10:45 105 163/100 Room Air 08/28/16 08:45 19 08/28/16 07:45 98.8 08/26/16 11:56 98 08/25/16 23:20 21 Exam Constitutional: alert, oriented Neck: non-tender, supple Respiratory: clear to auscultation, normal air movement Cardiovascular: nl pulses, regular rate and rhythm Gastrointestinal: nl liver, spleen, non-tender, other (No bruits), soft Results Result Diagram: 08/28/16 0915 08/25/16 1030 Results 24 hrs Laboratory Tests Test 08/27/16 15:43 08/27/16 18:02 08/27/16 20:12 08/28/16 06:03 Bedside Glucose 139 119 219 128 Test 08/28/16 09:15 08/28/16 10:55 Basophils # 0.0 Basophils % 0.3 Eosinophils # 0.4 Eosinophils % 2.9 Hematocrit 35.5 L Hemoglobin 12.0 Lymphocytes # 1.8 Lymphocytes % 13.7 L Mean Corpuscular Hemoglobin 29.1 Mean Corpuscular Hemoglobin Concent 33.8 Mean Corpuscular Volume 86.2 Mean Platelet Volume 11.3 H Monocytes # 0.7 Monocytes % 4.9 Neutrophils # 10.3 H Neutrophils % 77.8 H Nucleated Red Blood Cells # 0.0 Nucleated Red Blood Cells % 0.0 Platelet Count 465 H Red Blood Count 4.12 L Red Cell Distribution Width 14.1 White Blood Count 13.3 #H Bedside Glucose 184 Medications Medications Current Medications Diagnostic Test (Pha) (Accucheck) 1 ea 02 XX Last administered on 08/25/16 02: 11; Admin Dose 1 EA; Start 08/07/16 at 02:00 Diagnostic Test (Pha) (Accucheck) 1 ea FBSPP XX Last administered on 08/26/16 14:19; Admin Dose 1 EA; Start 08/07/16 at 14:00 Oxycodone/ Acetaminophen (Percocet (5/ 325)) 1 tab Q4H PRN PO PAIN LEVEL 4-6 Last administered on 08/28/16 06:52; Admin Dose 1 TAB; Start 08/25/16 at 16:30 Oxycodone/ Acetaminophen (Percocet (5/ 325)) 2 tab Q4H PRN PO PAIN LEVEL 7-10 Last administered on 08/27/16 15:45; Admin Dose 2 TAB; Start 08/25/16 at 16:30 Simethicone (Mylicon) 160 mg Q8H PRN PO DISTENSION/GAS/BLOATING Last administered on 08/27/16 09:12; Admin Dose 160 MG; Start 08/25/16 at 16:30 Senna/Docusate Sodium 1 tab 1 tab BID PO Last administered on 08/28/16 09:09; Admin Dose 1 TAB; Start 08/25/16 at 21:00 Oxytocin/Lactated Ringer's 500 ml @ 0 mls/hr ONCE PRN IV For Hemorrhage Management; Start 08/25/16 at 16:30 Carboprost Tromethamine (Hemabate) 250 mcg ONCE PRN IM VAGINAL BLEEDING; Start 08/25/16 at 16:30 Misoprostol (Cytotec) 1,000 mcg ONCE PRN [place] VAGINAL BLEEDING; Start 08/25/16 at 16:30 Miscellaneous Information 1 ea NOTE XX ; Start 08/27/16 at 11:00 Glucose (Glutose) 15 gm Q15M PRN PO DECREASED GLUCOSE; Start 08/27/16 at 11:00 Glucose (Glutose) 22.5 gm Q15M PRN PO DECREASED GLUCOSE; Start 08/27/16 at 11:00 Dextrose (D50w Syringe) 25 ml Q15M PRN IV DECREASED GLUCOSE; Start 08/27/16 at 11:00 Dextrose (D50w Syringe) 50 ml Q15M PRN IV DECREASED GLUCOSE; Start 08/27/16 at 11:00 Glucagon (Glucagen) 1 mg Q15M PRN IM DECREASED GLUCOSE; Start 08/27/16 at 11:00 Glucose (Glutose) 15 gm Q15M PRN BUCCAL DECREASED GLUCOSE; Start 08/27/16 at 11: 00 Diphenhydramine HCl (Benadryl) 25 mg HS PRN PO INSOMNIA Last administered on 21:52; Admin Dose 25 MG; Start 08/27/16 at 21:00 Nifedipine (Procardia Xl) 30 mg BID PO Last administered on 08/28/16 09:09; Admin Dose 30 MG; Start 08/28/16 at 09:00 Labetalol HCl (Normodyne) 400 mg Q8 PO ; Start 08/28/16 at 14:00 Hydralazine HCl (Apresoline) 10 mg Q4H PRN IV SBP>160 DBP>100; Start 08/28/16 at 13:30 ARTEM HONEYCUTT MD Aug 28, 2016 13:33
[2016-08-28] MEDS: METHYLDOPA 250 MG TAB PO SCH ×2 (14:30→20:40)
--- NOTE | 2016-08-28 17:57 | QN ---
Documentation Comment Patient's BP have been increasing and patient was transferred to Telemetry for close monitoring and control of her BP. Patient has no complaint. Afebrile BP improving Abdomen soft Management of DM per Endocrinolgy. Cardiology consult. DANUTA BUTTERFIELD MD Aug 28, 2016 17:57
[2016-08-28] MEDS: DIPHENHYDRAMINE 25 MG CAP PO PRN (23:48)
[2016-08-29] VITALS (10 sets, daily range): BP systolic 145–180; BP diastolic 80–99; PULSE 86–111; RESP 16–18
[2016-08-29] MEDS: ACCUCHECK XX SCH ×6 (02:00→22:00)
[2016-08-29] MEDS ORDERED: AMIODARONE 150MG/D5W BOLUS 100 ML IV ONE (05:06)
[2016-08-29] MEDS: LABETALOL 200 MG TAB PO SCH (05:53)
[2016-08-29 08:14] LABS: CHOL/HDL RATIO 2.9 RATIO
--- NOTE | 2016-08-29 08:29 | CONS ---
Date/Time of Note Date/Time of Note DATE: 08/29/16 TIME: 08:25 Assessment/Plan Assessment/Plan Chief Complaint/Hosp Course Pavel 41-year-old [place] female with a history of hypertension diabetes mellitus type 2. Her regular primary care physician was at [facility], Dr. Dane Oneal who has left informed a separate practice. She has been without primary care services and has been under the management of 1 of their UPHOLSTERY TECHNICIAN's as well as the perinatology group. At this facility. Previously she was on Januvia with metformin and glipizide and atenolol for blood pressure. When she became those medications were changed for appropriate measures. She reports she is not planning to have any future children was actually scheduled to have a tubal ligation although apparently that was not done at the time of her . She has no known complications of diabetes Problems: (1) Diabetes mellitus type 2 in obese Status: Chronic Comment: Patient's blood sugar control on a relatively simplified regimen is doing well. Please note these are postprandial sugars that are in the electronic record. As such she is doing well. I have had extensive discussion with her on the rationale treatment and the risks and benefits of treatment goals of treatment after discharge. Specifically highlighting exercise and dietary weight loss protocols. (2) Essential hypertension affecting Status: Chronic Comment: The patient is breast-feeding and as such her choice and medications will need to be appropriately tailored. She is doing well however she is having some tiredness from the labetalol. This should be switched over to metoprolol which is safe and friendly in breast-feeding also in . Her blood pressures come down nicely and at this point in time I believe she is stable and ready for discharge home with outpatient follow-up. Please note that she already has an appointment with her primary care physician Dr. Rosita Wadsworth [facility] (3) Obesity (BMI 30-39.9) Status: Chronic Comment: Counseled Consultation Date/Type/Reason Admit Date/Time Aug 06, 2016 at 13:54 Initial Consult Date 08/26/16 Type of Consultation: Endocrinology Reason for Consultation Diabetes mellitus type 2; ; hypertension Referring Provider: DANUTA BUTTERFIELD MD 24 HR Interval Summary Constitutional: no complaints (No fever chills or sweats) Detailed Summary Eyes: no complaints Respiratory: no complaints Cardiovascular: no complaints (No palpitations no chest pain) Gastrointestinal: no complaints Exam/Review of Systems Vital Signs Vitals Vital Signs Date Time Temp Pulse Resp B/P Pulse Ox O2 Delivery O2 Flow Rate FiO2 08/29/16 04:00 98.5 93 145/80 Room Air 08/28/16 20:00 18 97 08/25/16 23:20 21 Intake and Output 08/28/16 08/28/16 08/29/16 15:00 23:00 07:00 Intake Total 1030 ml 300 ml Output Total 2 ml Balance 1028 ml 300 ml Exam Constitutional: alert, oriented Neck: non-tender, supple Respiratory: clear to auscultation, normal air movement Cardiovascular: nl pulses, regular rate and rhythm Gastrointestinal: nl liver, spleen, non-tender, soft Results Result Diagram: 08/28/16 0915 08/25/16 1030 Results 24 hrs Laboratory Tests Test 08/28/16 09:15 08/28/16 10:55 08/28/16 13:36 08/28/16 16:53 Basophils # 0.0 Basophils % 0.3 Eosinophils # 0.4 Eosinophils % 2.9 Hematocrit 35.5 L Hemoglobin 12.0 Lymphocytes # 1.8 Lymphocytes % 13.7 L Mean Corpuscular Hemoglobin 29.1 Mean Corpuscular Hemoglobin Concent 33.8 Mean Corpuscular Volume 86.2 Mean Platelet Volume 11.3 H Monocytes # 0.7 Monocytes % 4.9 Neutrophils # 10.3 H Neutrophils % 77.8 H Nucleated Red Blood Cells # 0.0 Nucleated Red Blood Cells % 0.0 Platelet Count 465 H Red Blood Count 4.12 L Red Cell Distribution Width 14.1 White Blood Count 13.3 #H Bedside Glucose 184 171 189 Test 08/28/16 20:37 08/29/16 02:26 08/29/16 05:51 08/29/16 06:50 Bedside Glucose 144 156 170 Cholesterol Level 212 H Cholesterol/HDL Ratio 2.9 HDL Cholesterol 71 LDL Cholesterol, Calculated 126 Triglycerides Level 73 Medications Medications Current Medications Diagnostic Test (Pha) (Accucheck) 1 ea 02 XX Last administered on 08/29/16t 02: 00; Admin Dose 1 EA; Start 08/07/16 at 02:00 Diagnostic Test (Pha) (Accucheck) 1 ea FBSPP XX Last administered on 08/28/16 17:03; Admin Dose 1 EA; Start 08/07/16 at 14:00 Oxycodone/ Acetaminophen (Percocet (5/ 325)) 1 tab Q4H PRN PO PAIN LEVEL 4-6 Last administered on 08/28/16 06:52; Admin Dose 1 TAB; Start 08/25/16 at 16:30 Oxycodone/ Acetaminophen (Percocet (5/ 325)) 2 tab Q4H PRN PO PAIN LEVEL 7-10 Last administered on 08/27/16 15:45; Admin Dose 2 TAB; Start 08/25/16 at 16:30 Simethicone (Mylicon) 160 mg Q8H PRN PO DISTENSION/GAS/BLOATING Last administered on 08/27/16 09:12; Admin Dose 160 MG; Start 08/25/16 at 16:30 Senna/Docusate Sodium 1 tab 1 tab BID PO Last administered on 08/28/16 20:40; Admin Dose 1 TAB; Start 08/25/16 at 21:00 Oxytocin/Lactated Ringer's 500 ml @ 0 mls/hr ONCE PRN IV For Hemorrhage Management; Start 08/25/16 at 16:30 Carboprost Tromethamine (Hemabate) 250 mcg ONCE PRN IM VAGINAL BLEEDING; Start 08/25/16 at 16:30 Misoprostol (Cytotec) 1,000 mcg ONCE PRN [place] VAGINAL BLEEDING; Start 08/25/16 at 16:30 Miscellaneous Information 1 ea NOTE XX ; Start 08/27/16 at 11:00 Glucose (Glutose) 15 gm Q15M PRN PO DECREASED GLUCOSE; Start 08/27/16 at 11:00 Glucose (Glutose) 22.5 gm Q15M PRN PO DECREASED GLUCOSE; Start 08/27/16 at 11:00 Dextrose (D50w Syringe) 25 ml Q15M PRN IV DECREASED GLUCOSE; Start 08/27/16 at 11:00 Dextrose (D50w Syringe) 50 ml Q15M PRN IV DECREASED GLUCOSE; Start 08/27/16 at 11:00 Glucagon (Glucagen) 1 mg Q15M PRN IM DECREASED GLUCOSE; Start 08/27/16 at 11:00 Glucose (Glutose) 15 gm Q15M PRN BUCCAL DECREASED GLUCOSE; Start 08/27/16 at 11: 00 Diphenhydramine HCl (Benadryl) 25 mg HS PRN PO INSOMNIA Last administered on 23:48; Admin Dose 25 MG; Start 08/27/16 at 21:00 Nifedipine (Procardia Xl) 30 mg BID PO Last administered on 08/28/16 20:40; Admin Dose 30 MG; Start 08/28/16 at 09:00 Hydralazine HCl (Apresoline) 10 mg Q4H PRN IV SBP>160 DBP>100 Last administered on 08/28/16 13:45; Admin Dose 10 MG; Start 08/28/16 at 13:30 Methyldopa (Aldomet) 250 mg BID PO Last administered on 08/28/16 20:40; Admin Dose 250 MG; Start 08/28/16 at 14:30 Metoprolol Succinate (Toprol Xl) 100 mg BID PO ; Start 08/29/16 at 09:00 ARTEM HONEYCUTT MD Aug 29, 2016 08:29
[2016-08-29] MEDS: SENNA/DOCUSATE NA (8.6MG/50MG) TAB PO SCH ×2 (08:36→20:35)
[2016-08-29] MEDS: NIFEdipine (XL) 30 MG TAB PO SCH ×2 (08:36→20:35)
[2016-08-29] MEDS: METHYLDOPA 250 MG TAB PO SCH ×2 (08:36→21:59)
[2016-08-29] MEDS: metFORMIN 500 MG TAB PO SCH ×2 (08:36→17:41)
[2016-08-29] MEDS ORDERED: METOPROLOL (XL) 100 MG TAB PO SCH ×2 (09:00→21:00)
[2016-08-29 09:39] LABS: ALBUMIN 3.4 g/dl (3.3-4.9); POTASSIUM 3.8 mmol/L (3.5-5.1)
[2016-08-29 09:41] LABS: CREATININE 0.54 mg/dl (0.44-1.00)
[2016-08-29 09:42] LABS: ALBUMIN/GLOBULIN RATIO 0.77; BILIRUBIN,INDIRECT 0.4 mg/dl (0-1.1); BILIRUBIN,TOTAL 0.4 mg/dl (0.2-1.3); TOTAL PROTEIN 7.8 g/dl (6.1-8.1)
--- NOTE | 2016-08-29 12:09 | RADRPT ---
Echocardiogram Report ADDENDUM Patient Name: SLADE GAUTAM Gender: Female Date: 1975 Study Date: 28-Aug-2016 Communications Equipment Operator: [facility] Location: [id number] Ref. Physician: CATHRYN HOOKS Quality: Technically Difficult Study Procedures: Transthoracic echocardiogram with complete 2D, M-Mode, and doppler examination. Indications: Hypertension. 2D/M Mode Doppler Measurement Value Normal Ranges Measurement Value Normal Ranges LVIDd 2D 4.2 3.5 - 5.6 cm AV Peak Alejandro 1.5 m/sec LVIDs 2D 3.3 2.1 - 4.1 cm AV Peak PG 8.9 mmHg LVPWd 2D 1.3 0.6 - 1.1 cm LVOT Peak Alejandro 1.0 m/sec IVSd 2D 1.3 0.6 - 1.1 cm LVOT Peak PG 4.1 mmHg AoR Diam 2D 2.4 2.0 - 3.7 cm TR Peak Alejandro 4.0 m/sec EDV 2D 78.1 cm3 TR Peak PG 65.3 mmHg ESV 2D 37.4 cm3 Findings Left Ventricle: Normal left ventricular systolic function. Normal left ventricular cavity size. Mild concentric left ventricular hypertrophy. Moderate global left ventricular systolic dysfunction. Ejection fraction is visually estimated at 3540 %. Abnormal Diastolic Function. There is global hypokinesis involving all segments of the left ventricle. Right Ventricle: Normal right ventricular size. Normal right ventricular systolic function. Left Atrium: Upper limit of normal left atrial size. Right Atrium: Right atrium at upper limits of normal. Mitral Valve: Mild mitral leaflet calcification. Moderate mitral valve regurgitation. Aortic Valve: Probable trileaflet aortic valve, although not all leaflets are visualized. Trace aortic valve regurgitation. Tricuspid Valve: Tricuspid valve not well visualized. Estimated peak PA systolic pressure 65 mmHg. There is mild to moderate tricuspid regurgitation. Pulmonic Valve: There is trace pulmonic regurgitation. Pericardium: Normal pericardium with no significant pericardial effusion. Aorta: Normal aortic root. IVC: Dilated IVC with respiratory collapse consistent with elevated right atrial pressure. Conclusions Normal left ventricular systolic function. Normal left ventricular cavity size. Mild concentric left ventricular hypertrophy. Moderate global left ventricular systolic dysfunction. Ejection fraction is visually estimated at 35-40 %. Abnormal Diastolic Function. There is global hypokinesis involving all segments of the left ventricle. Moderate mitral valve regurgitation. Trace aortic valve regurgitation. Estimated peak PA systolic pressure 65 mmHg. There is mild to moderate tricuspid regurgitation. There is trace pulmonic regurgitation. Electronically Signed By: Cathryn Hooks 29-Aug-2016 13:16:36 -0800 [ADDENDUM] Patient Name: SLADE GAUTAM Study Date: 28-Aug-2016 [id number]
--- NOTE | 2016-08-29 13:29 | CONS ---
Date/Time of Note Date/Time of Note DATE: 08/29/16 TIME: 13:24 Assessment/Plan Assessment/Plan Chief Complaint/Hosp Course IMPRESSION: 1. 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 1. Hypertension, slowly improving, with development of superimposed preeclampsia. 2. MItral regurgitation-moderate 3. Diabetes mellitus. 4. Status post delivery. 5. Possible development of depression. 6. Leukocytosis. Recc: -Tele -serial ecg's -OK to change labetelol to Toprol XL for treatment of cardiomyopathy/HTN but will decrease starting dose so as not to provoke decompensation -start ACEI afterload reduction -Continue procardia for now -Check BNP/CXR -Follow volume status closely Problems: Consultation Date/Type/Reason Admit Date/Time Aug 06, 2016 at 13:54 Initial Consult Date 08/26/16 Type of Consultation: Cardiology Reason for Consultation HTN/cardiomyopathy Referring Provider: DANUTA BUTTERFIELD MD Exam/Review of Systems Vital Signs Vitals Vital Signs Date Time Temp Pulse Resp B/P Pulse Ox O2 Delivery O2 Flow Rate FiO2 08/29/16 12:29 100 08/29/16 11:51 98.7 16 163/91 98 08/29/16 04:00 Room Air 08/25/16 23:20 21 Intake and Output 08/28/16 08/28/16 08/29/16 15:00 23:00 07:00 Intake Total 1030 ml 300 ml Output Total 2 ml Balance 1028 ml 300 ml Exam Review of Systems: CONSTITUTIONAL: No fevers, chills. PULMONARY: mild sob CARDIOVASCULAR: No chest pain/palpitations GASTROINTESTINAL: No nausea/vomiting. GENITOURINARY: No hematuria/dysuria. MUSCULOSKELETAL: No myagias/arthalgias. PSYCHIATRIC: Flat affect NEUROLOGIC: mild generalized weakness Constitutional: alert Psych: depression Head: normocephalic ENMT: mucosa pink and moist Neck: jvd (9 cm water), supple Respiratory: diminished breath sounds (at bases/B) Cardiovascular: regular rate and rhythm Gastrointestinal: non-tender, soft Musculoskeletal: muscle tone (normal) Extremities: edema, pitting pedal edema (Trace) Neurological: other (No focal deficits) Results Result Diagram: 08/28/16 0915 08/29/16 0650 Results 24 hrs Laboratory Tests Test 08/28/16 13:36 08/28/16 16:53 08/28/16 20:37 08/29/16 02:26 Bedside Glucose 171 189 144 156 Test 08/29/16 05:51 08/29/16 06:50 08/29/16 10:08 08/29/16 11:54 Bedside Glucose 170 225 H 184 Alanine Aminotransferase (ALT/SGPT) 57 Albumin 3.4 Albumin/Globulin Ratio 0.77 Alkaline Phosphatase 120 Anion Gap 18 H Aspartate Amino Transf (AST/SGOT) 46 Blood Urea Nitrogen 9 Calcium Level 9.0 Carbon Dioxide Level 23 Chloride Level 104 Cholesterol Level 212 H Cholesterol/HDL Ratio 2.9 Creatinine 0.54 Direct Bilirubin 0.00 Globulin 4.40 H Glucose Level 179 HDL Cholesterol 71 Indirect Bilirubin 0.4 LDL Cholesterol, Calculated 126 Potassium Level 3.8 Sodium Level 141 Total Bilirubin 0.4 Total Protein 7.8 Triglycerides Level 73 Medications Medications Current Medications Diagnostic Test (Pha) (Accucheck) 1 ea 02 XX Last administered on 08/29/16 02: 00; Admin Dose 1 EA; Start 08/07/16 at 02:00 Diagnostic Test (Pha) (Accucheck) 1 ea FBSPP XX Last administered on 08/28/16 17:03; Admin Dose 1 EA; Start 08/07/16 at 14:00 Oxycodone/ Acetaminophen (Percocet (5/ 325)) 1 tab Q4H PRN PO PAIN LEVEL 4-6 Last administered on 08/28/16 06:52; Admin Dose 1 TAB; Start 08/25/16 at 16:30 Oxycodone/ Acetaminophen (Percocet (5/ 325)) 2 tab Q4H PRN PO PAIN LEVEL 7-10 Last administered on 08/27/16 15:45; Admin Dose 2 TAB; Start 08/25/16 at 16:30 Simethicone (Mylicon) 160 mg Q8H PRN PO DISTENSION/GAS/BLOATING Last administered on 08/27/16 09:12; Admin Dose 160 MG; Start 08/25/16 at 16:30 Senna/Docusate Sodium 1 tab 1 tab BID PO Last administered on 08/28/16 20:40; Admin Dose 1 TAB; Start 08/25/16 at 21:00 Oxytocin/Lactated Ringer's 500 ml @ 0 mls/hr ONCE PRN IV For Hemorrhage Management; Start 08/25/16 at 16:30 Carboprost Tromethamine (Hemabate) 250 mcg ONCE PRN IM VAGINAL BLEEDING; Start 08/25/16 at 16:30 Misoprostol (Cytotec) 1,000 mcg ONCE PRN [place] VAGINAL BLEEDING; Start 08/25/16 at 16:30 Miscellaneous Information 1 ea NOTE XX ; Start 08/27/16 at 11:00 Glucose (Glutose) 15 gm Q15M PRN PO DECREASED GLUCOSE; Start 08/27/16 at 11:00 Glucose (Glutose) 22.5 gm Q15M PRN PO DECREASED GLUCOSE; Start 08/27/16 at 11:00 Dextrose (D50w Syringe) 25 ml Q15M PRN IV DECREASED GLUCOSE; Start 08/27/16 at 11:00 Dextrose (D50w Syringe) 50 ml Q15M PRN IV DECREASED GLUCOSE; Start 08/27/16 at 11:00 Glucagon (Glucagen) 1 mg Q15M PRN IM DECREASED GLUCOSE; Start 08/27/16 at 11:00 Glucose (Glutose) 15 gm Q15M PRN BUCCAL DECREASED GLUCOSE; Start 08/27/16 at 11: 00 Diphenhydramine HCl (Benadryl) 25 mg HS PRN PO INSOMNIA Last administered on 23:48; Admin Dose 25 MG; Start 08/27/16 at 21:00 Nifedipine (Procardia Xl) 30 mg BID PO Last administered on 08/29/16 08:36; Admin Dose 30 MG; Start 08/28/16 at 09:00 Hydralazine HCl (Apresoline) 10 mg Q4H PRN IV SBP>160 DBP>100 Last administered on 08/28/16 13:45; Admin Dose 10 MG; Start 08/28/16 at 13:30 Methyldopa (Aldomet) 250 mg BID PO Last administered on 08/29/16 08:36; Admin Dose 250 MG; Start 08/28/16 at 14:30 Metoprolol Succinate (Toprol Xl) 100 mg BID PO ; Start 08/29/16 at 09:00; Status Future Hold CATHRYN HOOKS Aug 29, 2016 13:29
[2016-08-29] MEDS ORDERED: DIGOXIN 500 MCG INJ IV ONE (13:30)
--- NOTE | 2016-08-29 13:42 | RADRPT ---
Vent Rate: 116 bpm RR Interval: 0 msec DE Interval: 144 msec QRS Duration: 78 msec QT Interval: 328 msec QTC Interval: 455 msec P-R-T [place]: 49 - 53 - -25 degrees Sinus tachycardia Marked ST abnormality, possible inferior subendocardial injury Abnormal ECG Electronically Signed By: George Ulrich [id number]
--- NOTE | 2016-08-29 13:43 | RADRPT ---
Vent Rate: 105 bpm RR Interval: 0 msec UT Interval: 146 msec QRS Duration: 80 msec QT Interval: 348 msec QTC Interval: 459 msec P-R-T [place]: 39 - 60 - -10 degrees Sinus tachycardia Nonspecific T wave abnormality Abnormal ECG Electronically Signed By: George Ulirch [id number]
--- NOTE | 2016-08-29 13:59 | QN ---
Documentation Comment No complaint Afebrile VSS Abdomen sot Continue care per Endocrinology and Cardiology. DANUTA BUTTERFIELD MD Aug 29, 2016 13:59
[2016-08-29] MEDS: METOPROLOL (XL) 50 MG TAB PO SCH ×2 (14:02→20:34)
--- NOTE | 2016-08-29 14:02 | RADRPT ---
PROCEDURE: XR Chest. CLINICAL INDICATION: Congestive heart failure TECHNIQUE: Chest AP portable. COMPARISON: No comparison available. FINDINGS: The mediastinal structures are unremarkable. The heart is normal in size and configuration. The pu lmonary vascularity is normal. The lung crooks are unremarkable. No consolidation is identified. The pleural spaces are unremarkable. The axial skeleton is unremarkable. IMPRESSION: No active intrathoracic disease. RPTAT: HGDB .Alexandro Verdin MD, MD Date Time Electronically viewed and signed by .Alexandro Verdin MD, MD on 08/29/2016 14:02 .B/
[2016-08-29] MEDS ORDERED: BENAZEPRIL 10 MG TAB PO SCH (21:00)
[2016-08-30] VITALS (10 sets, daily range): BP systolic 155–165; BP diastolic 92–101; PULSE 77–98; RESP 18–20
[2016-08-30] MEDS: ACCUCHECK XX SCH ×5 (02:00→14:00)
--- NOTE | 2016-08-30 06:23 | CONS ---
Date/Time of Note Date/Time of Note DATE: 08/30/16 TIME: 06:21 Assessment/Plan Assessment/Plan Chief Complaint/Hosp Course Pavel 41-year-old Indian female with a history of hypertension diabetes mellitus type 2. Her regular primary care physician was at [facility], Dr. Dane Oneal who has left informed a separate practice. She has been without primary care services and has been under the management of 1 of their [facility] [employer]'s as well as the perinatology group. At this facility. Previously she was on Januvia with metformin and glipizide and atenolol for blood pressure. When she became those medications were changed for appropriate measures. She reports she is not planning to have any future children was actually scheduled to have a tubal ligation although apparently that was not done at the time of her . She has no known complications of diabetes Problems: (1) cardiomyopathy Status: Acute Comment: The echocardiogram has not been interpreted and shows decreased ejection fraction systolic as well as diastolic dysfunction cardiomyopathy. This would adjust therapeutics. Beta-blockers tolerated the lower dose and will go up to the increased dose. In addition the ALFREDO inhibitor will be increased and the ultimate can be stopped and replaced. Medications we tried titrated to effect. (2) Diabetes mellitus type 2 in obese Status: Chronic Comment: Well-controlled (3) Obesity (BMI 30-39.9) Status: Chronic Comment: Calorie restricted diet (4) Essential hypertension affecting Status: Chronic Comment: Medication adjustment as above Consultation Date/Type/Reason Admit Date/Time Aug 06, 2016 at 13:54 Initial Consult Date 08/26/16 Type of Consultation: Endocrinology Reason for Consultation Diabetes mellitus type 2; hypertension; cardiomyopathy Referring Provider: DANUTA BUTTERFIELD MD 24 HR Interval Summary Constitutional: no complaints Exam/Review of Systems Vital Signs Vitals Vital Signs Date Time Temp Pulse Resp B/P Pulse Ox O2 Delivery O2 Flow Rate FiO2 08/30/16 04:12 85 08/30/16 00:00 98.7 18 161/92 96 08/29/16 04:00 Room Air Intake and Output 08/29/16 08/29/16 08/30/16 15:00 23:00 07:00 Intake Total 250 ml 1504 ml Balance 250 ml 1504 ml Exam Constitutional: alert, oriented Respiratory: clear to auscultation, normal air movement Cardiovascular: nl pulses, regular rate and rhythm Results Result Diagram: 08/28/16 0915 08/29/16 0650 Results 24 hrs Laboratory Tests Test 08/29/16 06:50 08/29/16 10:08 08/29/16 11:54 08/29/16 15:22 Alanine Aminotransferase (ALT/SGPT) 57 Albumin 3.4 Albumin/Globulin Ratio 0.77 Alkaline Phosphatase 120 Anion Gap 18 H Aspartate Amino Transf (AST/SGOT) 46 B-Type Natriuretic Peptide 1460 H Blood Urea Nitrogen 9 Calcium Level 9.0 Carbon Dioxide Level 23 Chloride Level 104 Cholesterol Level 212 H Cholesterol/HDL Ratio 2.9 Creatinine 0.54 Direct Bilirubin 0.00 Globulin 4.40 H Glucose Level 179 HDL Cholesterol 71 Indirect Bilirubin 0.4 LDL Cholesterol, Calculated 126 Potassium Level 3.8 Sodium Level 141 Total Bilirubin 0.4 Total Protein 7.8 Triglycerides Level 73 Bedside Glucose 225 H 184 167 Test 08/29/16 17:27 08/29/16 21:59 Bedside Glucose 147 154 Medications Medications Current Medications Diagnostic Test (Pha) (Accucheck) 1 ea 02 XX Last administered on 08/29/16 02: 00; Admin Dose 1 EA; Start 08/07/16 at 02:00 Diagnostic Test (Pha) (Accucheck) 1 ea FBSPP XX Last administered on 08/29/16 22:00; Admin Dose 1 EA; Start 08/07/16 at 14:00 Oxycodone/ Acetaminophen (Percocet (5/ 325)) 1 tab Q4H PRN PO PAIN LEVEL 4-6 Last administered on 08/28/16 06:52; Admin Dose 1 TAB; Start 08/25/16 at 16:30 Oxycodone/ Acetaminophen (Percocet (5/ 325)) 2 tab Q4H PRN PO PAIN LEVEL 7-10 Last administered on 08/27/16 15:45; Admin Dose 2 TAB; Start 08/25/16 at 16:30 Simethicone (Mylicon) 160 mg Q8H PRN PO DISTENSION/GAS/BLOATING Last administered on 08/27/16 09:12; Admin Dose 160 MG; Start 08/25/16 at 16:30 Senna/Docusate Sodium 1 tab 1 tab BID PO Last administered on 3/2/17at 20:40; Admin Dose 1 TAB; Start 08/25/16 at 21:00 Oxytocin/Lactated Ringer's 500 ml @ 0 mls/hr ONCE PRN IV For Hemorrhage Management; Start 08/25/16 at 16:30 Carboprost Tromethamine (Hemabate) 250 mcg ONCE PRN IM VAGINAL BLEEDING; Start 08/25/16 at 16:30 Misoprostol (Cytotec) 1,000 mcg ONCE PRN SD VAGINAL BLEEDING; Start 08/25/16 at 16:30 Miscellaneous Information 1 ea NOTE XX ; Start 08/27/16 at 11:00 Glucose (Glutose) 15 gm Q15M PRN PO DECREASED GLUCOSE; Start 08/27/16 at 11:00 Glucose (Glutose) 22.5 gm Q15M PRN PO DECREASED GLUCOSE; Start 08/27/16 at 11:00 Dextrose (D50w Syringe) 25 ml Q15M PRN IV DECREASED GLUCOSE; Start 08/27/16 at 11:00 Dextrose (D50w Syringe) 50 ml Q15M PRN IV DECREASED GLUCOSE; Start 08/27/16 at 11:00 Glucagon (Glucagen) 1 mg Q15M PRN IM DECREASED GLUCOSE; Start 08/27/16 at 11:00 Glucose (Glutose) 15 gm Q15M PRN BUCCAL DECREASED GLUCOSE; Start 08/27/16 at 11: 00 Diphenhydramine HCl (Benadryl) 25 mg HS PRN PO INSOMNIA Last administered on 23:48; Admin Dose 25 MG; Start 08/27/16 at 21:00 Nifedipine (Procardia Xl) 30 mg BID PO Last administered on 08/29/16 20:35; Admin Dose 30 MG; Start 08/28/16 at 09:00 Hydralazine HCl (Apresoline) 10 mg Q4H PRN IV SBP>160 DBP>100 Last administered on 08/28/16 13:45; Admin Dose 10 MG; Start 08/28/16 at 13:30 Methyldopa (Aldomet) 250 mg BID PO Last administered on 08/29/16 21:59; Admin Dose 250 MG; Start 08/28/16 at 14:30 Metoprolol Succinate (Toprol Xl) 50 mg BID PO Last administered on 08/29/16 20: 34; Admin Dose 50 MG; Start 08/29/16 at 13:30 Benazepril HCl (Lotensin) 10 mg BID PO Last administered on 08/29/16t 20:34; Admin Dose 10 MG; Start 08/29/16 at 21:00 ARTEM HONEYCUTT MD Aug 30, 2016 06:23
[2016-08-30 07:49] LABS: ADD SCAN DIFF NO
[2016-08-30 08:02] LABS: BASOPHIL # 0.1 10^3/ul (0.0-0.1); BASOPHILS % 0.4 % (0.0-2.0); EOSINOPHILS # 0.7 10^3/ul (0.0-0.5); EOSINOPHILS % 5.3 % (0.0-7.0); HEMATOCRIT 39.1 % (37.0-47.0); HEMOGLOBIN 13.3 g/dl (12.0-16.0); LYMPHOCYTES # 2.4 10^3/ul (0.8-2.9); LYMPHOCYTES % 17.2 % (15.0-51.0); MEAN CORPUSCULAR HEMOGLOBIN 28.8 pg (29.0-33.0); MEAN CORPUSCULAR VOLUME 84.6 fl (82.0-101.0); MEAN PLATELET VOLUME 10.9 fl (7.4-10.4); MONOCYTE # 0.8 10^3/ul (0.3-0.9); MONOCYTES % 5.8 % (0.0-11.0); NEUTROPHIL # 9.8 10^3/ul (1.6-7.5); NEUTROPHILS % 70.8 % (39.0-77.0); PLATELET COUNT 618 10^3/UL (140-415); RED BLOOD COUNT 4.62 10^6/ul (4.20-5.40); RED CELL DISTRIBUTION WIDTH 13.9 % (11.5-14.5); WHITE BLOOD COUNT 13.9 10^3/ul (4.8-10.8)
[2016-08-30 08:17] LABS: POTASSIUM 3.1 mmol/L (3.5-5.1)
[2016-08-30 08:20] LABS: CREATININE 0.53 mg/dl (0.44-1.00)
[2016-08-30 08:21] LABS: CALCIUM 9.3 mg/dl (8.4-10.2)
[2016-08-30] MEDS: metFORMIN 500 MG TAB PO SCH ×2 (08:29→17:42)
[2016-08-30] MEDS: NIFEdipine (XL) 30 MG TAB PO SCH (08:48)
[2016-08-30] MEDS: SENNA/DOCUSATE NA (8.6MG/50MG) TAB PO SCH (08:50)
[2016-08-30] MEDS ORDERED: BENAZEPRIL 20 MG TAB PO SCH (09:00)
[2016-08-30] MEDS ORDERED: METOPROLOL (XL) 100 MG TAB PO SCH (09:00)
--- NOTE | 2016-08-30 14:25 | CONS ---
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 Hypertension Moderate Mitral regurgitation Diabetes mellitus. Status post Hemodynamically stable Continue Benazepril , nifedipine and Toprol Consultation Date/Type/Reason Admit Date/Time Aug 06, 2016 at 13:54 Constitutional: no complaints Eyes: no complaints ENT: no complaints Respiratory: no complaints Cardiovascular: no complaints (No palpitations no chest pain) Gastrointestinal: no complaints Genitourinary: no complaints Musculoskeletal: no complaints Skin: no complaints Psychological: depression Past Medical History Medical History: diabetes, hypertension Social History Alcohol Use: none Smoking Status: Never smoker Drug Use: none Exam/Review of Systems Vital Signs Vitals Vital Signs Date Time Temp Pulse Resp B/P Pulse Ox O2 Delivery O2 Flow Rate FiO2 08/30/16 12:14 81 08/30/16 12:01 98.5 18 165/100 97 08/29/16 04:00 Room Air Intake and Output 08/29/16 08/29/16 08/30/16 15:00 23:00 07:00 Intake Total 250 ml 1504 ml 350 ml Balance 250 ml 1504 ml 350 ml Exam Constitutional: alert, oriented Head: atraumatic, normocephalic Neck: non-tender, supple Respiratory: clear to auscultation Cardiovascular: regular rate and rhythm Gastrointestinal: nl liver, spleen, non-tender, soft Extremities: normal pulses Results Result Diagram: 08/30/16 0713 08/30/16 0713 Results 24 hrs Laboratory Tests Test 08/29/16 15:22 08/29/16 17:27 08/29/16 21:59 08/30/16 06:49 Bedside Glucose 167 147 154 160 Test 08/30/16 07:13 08/30/16 08:20 08/30/16 12:13 Anion Gap 18 H Basophils # 0.1 Basophils % 0.4 Blood Urea Nitrogen 10 Calcium Level 9.3 Carbon Dioxide Level 25 Chloride Level 102 Creatinine 0.53 Eosinophils # 0.7 H Eosinophils % 5.3 Glucose Level 166 Hematocrit 39.1 Hemoglobin 13.3 Lymphocytes # 2.4 Lymphocytes % 17.2 Mean Corpuscular Hemoglobin 28.8 L Mean Corpuscular Hemoglobin Concent 34.0 Mean Corpuscular Volume 84.6 Mean Platelet Volume 10.9 H Monocytes # 0.8 Monocytes % 5.8 Neutrophils # 9.8 H Neutrophils % 70.8 Nucleated Red Blood Cells # 0.0 Nucleated Red Blood Cells % 0.0 Platelet Count 618 #H Potassium Level 3.1 L Red Blood Count 4.62 Red Cell Distribution Width 13.9 Sodium Level 142 White Blood Count 13.9 H Bedside Glucose 193 147 Medications Medications Current Medications Diagnostic Test (Pha) (Accucheck) 1 ea 02 XX Last administered on 08/29/16 02: 00; Admin Dose 1 EA; Start 08/07/16 at 02:00 Diagnostic Test (Pha) (Accucheck) 1 ea FBSPP XX Last administered on 08/30/16 07:30; Admin Dose 1 EA; Start 08/07/16 at 14:00 Oxycodone/ Acetaminophen (Percocet (5/ 325)) 1 tab Q4H PRN PO PAIN LEVEL 4-6 Last administered on 08/28/16 06:52; Admin Dose 1 TAB; Start 08/25/16 at 16:30 Oxycodone/ Acetaminophen (Percocet (5/ 325)) 2 tab Q4H PRN PO PAIN LEVEL 7-10 Last administered on 08/27/16 15:45; Admin Dose 2 TAB; Start 08/25/16 at 16:30 Simethicone (Mylicon) 160 mg Q8H PRN PO DISTENSION/GAS/BLOATING Last administered on 08/27/16 09:12; Admin Dose 160 MG; Start 08/25/16 at 16:30 Senna/Docusate Sodium 1 tab 1 tab BID PO Last administered on 08/30/16 08:50; Admin Dose 1 TAB; Start 08/25/16 at 21:00 Oxytocin/Lactated Ringer's 500 ml @ 0 mls/hr ONCE PRN IV For Hemorrhage Management; Start 08/25/16 at 16:30 Carboprost Tromethamine (Hemabate) 250 mcg ONCE PRN IM VAGINAL BLEEDING; Start 08/25/16 at 16:30 Misoprostol (Cytotec) 1,000 mcg ONCE PRN MO VAGINAL BLEEDING; Start 08/25/16 at 16:30 Miscellaneous Information 1 ea NOTE XX ; Start 08/27/16 at 11:00 Glucose (Glutose) 15 gm Q15M PRN PO DECREASED GLUCOSE; Start 08/27/16 at 11:00 Glucose (Glutose) 22.5 gm Q15M PRN PO DECREASED GLUCOSE; Start 08/27/16 at 11:00 Dextrose (D50w Syringe) 25 ml Q15M PRN IV DECREASED GLUCOSE; Start 08/27/16 at 11:00 Dextrose (D50w Syringe) 50 ml Q15M PRN IV DECREASED GLUCOSE; Start 08/27/16 at 11:00 Glucagon (Glucagen) 1 mg Q15M PRN IM DECREASED GLUCOSE; Start 08/27/16 at 11:00 Glucose (Glutose) 15 gm Q15M PRN BUCCAL DECREASED GLUCOSE; Start 08/27/16 at 11: 00 Diphenhydramine HCl (Benadryl) 25 mg HS PRN PO INSOMNIA Last administered on 23:48; Admin Dose 25 MG; Start 08/27/16 at 21:00 Nifedipine (Procardia Xl) 30 mg BID PO Last administered on 08/30/16 08:48; Admin Dose 30 MG; Start 08/28/16 at 09:00 Hydralazine HCl (Apresoline) 10 mg Q4H PRN IV SBP>160 DBP>100 Last administered on 08/28/16 13:45; Admin Dose 10 MG; Start 08/28/16 at 13:30 Benazepril HCl (Lotensin) 20 mg BID PO Last administered on 08/30/16 08:49; Admin Dose 20 MG; Start 08/30/16 at 09:00 Metoprolol Succinate (Toprol Xl) 100 mg BID PO Last administered on 08/30/16 08 :50; Admin Dose 100 MG; Start 08/30/16 at 09:00 KLEBER PEDERSON M.D. Aug 30, 2016 14:24
[2016-08-30] MEDS: OXYCODONE/ACETAMINOPHEN (5/325) TAB PO PRN (17:44)
--- NOTE | 2016-08-31 05:31 | DS ---
DATE OF ADMISSION: 08/06/2016 DATE OF DISCHARGE: 08/30/2016 ADMITTING DIAGNOSIS: at 28 weeks with diabetes mellitus and chronic hypertension, superim posed preeclampsia, and intrauterine growth restriction. HISTORY: A 41-year-old female, 4, para 1-0-2-1 at admission, para 1-1-2-2 at the time of elias rizzo who was admitted due to increasing blood pressure and intrauterine growth restriction. The patient was noted to have superimposed preeclampsia. Recommendation of perinatologist was to keep t he patient in hospital until delivery. On 08/25/2016, the patient was noted to have recurrent heart decelerations, and recommendation of perinatologist was to deliver the patient by emergency c esarean section. On 08/25/2016, after obtaining informed consent, the patient underwent a primary l ow transverse section. The patient's operation was uncomplicated. Postoperatively, the pa tient was given intravenous magnesium sulfate for seizure prophylaxis. The patient's blood pressure was noted to be increasing. The patient was given labetalol to control her blood pressure; however , the patient's blood pressures were noted to be increasing. Cardiology consultation was obtained. The patient was transferred to telemetry. The patient's blood pressure was improved with medicatio n, per kiln firer. Workup was done by kiln firer including electrocardiogram which revealed car diomyopathy. The patient was kept in telemetry for close monitoring. On 08/30/2016, the patient re quested to leave the hospital. The patient was extensively counseled about the potential complicati ons of peripartum cardiomyopathy and uncontrolled blood pressure. The patient was counseled about masood heaton potential complications including but not limited to heart attack, stroke, and . The patien t stated she understood and signed out against medical advice. CONDITION ON DISCHARGE: Guarded. DISCHARGE MEDICATIONS: Continue with current medications for blood pressure per kiln firer and al so metformin per center hole reamer for diabetes. The patient was provided with prescriptions for medi cations that she is currently taking in the hospital per cardiology and endocrinology. FOLLOWUP: Follow up with kiln firer and center hole reamer as soon as possible. Follow up with OB/[facility] in 3 days. HOSPITAL COURSE: The patient is given precautions that, in case she checks her blood pressure at [facility] and her blood pressure is elevated, to return to the emergency department due to elevated blood p ressure or anything abnormal or anything that bothers the patient. FINAL DIAGNOSES: 1. , delivered by section. 2. Chronic hypertension. 3. Superimposed preeclampsia. 4. Diabetes mellitus. 5. growth restriction. 6. Peripartum cardiomyopathy. 7. Mother with single liveborn. 8. Signed out against medical advice. Dictated By: DANUTA SANTIAGO/NTS Conf#: [id number] DID#: [id number]
== END 2016-08-30 19:00 | disposition home or self-care (01) | DRG 765 ==
LOC: OBG 13:54 → L-D 08-25 10:47 → PP1 08-25 15:55 → MS4 08-28 14:30
PROVIDERS: ADMIT Obstetrics & Gynecology; ATTEND Obstetrics & Gynecology
PROC: 10D00Z1 Extraction of Products of Conception, Low, Open Approach (ICD-10-PCS; principal; 2016-08-25)
DX: O11.4 Pre-existing hypertension with pre-eclampsia, complicating childbirth (principal); O36.5930 Maternal care for other known or suspected poor fetal growth, third trimester, not applicable or unspecified; O90.3 Peripartum cardiomyopathy; O24.12 Pre-existing type 2 diabetes mellitus, in childbirth; E11.9 Type 2 diabetes mellitus without complications; O99.214 Obesity complicating childbirth; O76 Abnormality in fetal heart rate and rhythm complicating labor and delivery; I34.0 Nonrheumatic mitral (valve) insufficiency; O99.413 Diseases of the circulatory system complicating pregnancy, third trimester; E66.9 Obesity, unspecified; Z3A.28 28 weeks gestation of pregnancy; Z68.31 Body mass index [BMI] 31.0-31.9, adult; Z37.0 Single live birth; Z79.84 Long term (current) use of oral hypoglycemic drugs
CPT/HCPCS: 36415; 71010; 76815; 76818; 76820; 80048; 80053; 80061; 81001; 81003; 82575; 82803; 82962; 83735; 83880; 84560; 85025; 85610; 85730; 86592; 86803; 86850; 86900; 86901; 87340; 88307; 90715; 93005; 93306; 94760; 99464; J0282; J0360; J0690; J0702; J0780; J1170; J1815; J1885; J2274; J2370; J2405; J2590; J2765; J3010; J3475; J7120